=== PATIENT | female | born 1940 | race Caucasian/White ===

== ENCOUNTER 2019-02-10 21:42 | Observation (INO) ==
[2019-02-10 23:57] LABS: RBC 1.94 XMIL (4.2-5.4); WBC 6.31 X1000 (4.8-10.8)
[2019-02-10 23:58] LABS: BASO# 0.01 X1000 (0.0-0.2); BASO% 0.2 % (0.0-0.8); EOS# 0.02 X1000 (0.0-0.7); EOS% 0.3 % (0.0-10.0); HEMATOCRIT 19.2 % (37.0-47.0); IMM GRAN# 0.05 X1000 (0.0-0.04); IMM GRAN% 0.8 % (0.0-0.5); LYMPH# 0.41 X1000 (1.2-3.4); LYMPH% 6.5 % (20.5-51.1); MCH 28.4 PG (27-31); MCHC 28.6 g/dL (33-37); MONO# 0.48 X1000 (0.11-0.59); MONO% 7.6 % (1.7-9.3); MPV 9.8 FL (7.4-10.4); NEUT# 5.34 X1000 (1.4-6.5); NEUT% 84.6 % (42.2-75.2); PLT 229 X1000 (130-400); RDW 16.5 % (11.5-14.5)
[2019-02-10 23:59] LABS: HEMOGLOBIN 5.5 g/dL (12.0-16.0)
[2019-02-11 00:23] LABS: AGAP 8; ALB/GLOB RATIO 1.3; ALBUMIN 3.7 g/dL (3.5-5.0); ALKALINE PHOSPHATASE 52 U/L (32-104); BUN 20 mg/dL (8-22); CALCIUM 10.1 mg/dL (8.8-10.2); CHLORIDE 101 mmol/L (98-107); COSMO 277; CREATININE 0.8 mg/dL (0.5-0.9); ESTIMATED GFR > 60; GLUCOSE 117 mg/dL (70-104); GOT 19 U/L (10-30); GPT 12 U/L (10-36); POTASSIUM 4.3 mmol/L (3.5-5.1); SODIUM 137 mmol/L (136-145); TCO2 28 mmol/L (25-35); TOTAL BILIRUBIN 0.26 mg/dL (0.20-1.00); TOTAL PROTEIN 6.6 g/dL (6.3-8.3)
[2019-02-11 00:43] LABS: FREE T4 1.32 ng/dL (0.93-1.70); TSH 1.26 uIUmL (0.27-4.20)
--- NOTE | 2019-02-11 01:42 | PROVIDER DOCUMENTATION ---
This chart was entered by Hattie Ling Scribe, acting as scribe for Rinku Queen MD. HPI-Cardiac General - General Chief Complaint: Anxiety Stated Complaint: panic attack Time Seen by Provider: 02/10/19 21:53 Source: patient Allergies/Adverse Reactions: Patient Allergies Allergy/AdvReac Type Severity Reaction Status Date / Time Sulfa (Sulfonamide Allergy Severe SWELLING Verified 03/25/16 17:52 Antibiotics) TO THROAT, [Sulfa(Sulfonamide TONGUE, Antibiotics)] HIVES amoxicillin trihydrate * AdvReac Mild DIARRHEA Verified 03/25/16 17:52 [From Augmentin] potassium clavulanate * AdvReac Mild DIARRHEA Verified 03/25/16 17:52 [From Augmentin] Home Medications: Home Medication List Medication Instructions Recorded Confirmed Last Taken Type Furosemide [Lasix] 20 mg PO EVERY OTHER DAY 12/29/15 05/09/18 05/08/18 History Aspirin 81 mg PO QAM 03/25/16 05/09/18 05/09/18 History Potassium Chloride E.r. [Micro-K] 10 mg PO QPM 03/25/16 05/09/18 05/09/18 History Ambrisentan [Letairis] 5 mg PO DAILY 05/04/17 05/09/18 05/09/18 History Cyanocobalamin (Vitamin B-12) 500 mcg PO DAILY 05/04/17 05/09/18 05/09/18 History [B-12] Digoxin 125 mcg PO DAILY 05/04/17 05/09/18 05/09/18 History Ferrous Sulfate 325 mg PO BID CC 05/04/17 05/09/18 05/09/18 History Multivitamin,Therapeutic [Thera] 1 each PO DAILY 05/04/17 05/09/18 05/09/18 History Sildenafil [Revatio] 20 mg PO TID 05/04/17 05/09/18 05/09/18 History Spironolactone 25 mg PO DAILY 05/04/17 05/09/18 05/04/17 07:00 History Vit D3-Vit K/Berberine/Hops 1 each PO DAILY 05/04/17 05/09/18 05/04/17 07:00 History [Ostera Tablet] - History of Present Illness-Cardiac Nature of Presenting Problem: 78 yof presents w/family w/co rapid HR for 2 weeks intermittently but mostly when standing and also becomes dizzy. pt states she felt HR go up when standing to use the restroom. pt is a resident at [facility]. pt was watching tv tonight and "felt funny" and called nurses and bp was elevated and heart rate was 130 per family. pt states 1 week ago chest felt tight and rad up neck and back. pt has sinus problems but denies sob, abd pain, nvd, fever and sweating. pt is seen at [facility] for cardiac problem. was referred by dr. cohen. pt recently started taking loteritis. pt has hyx of chf, copd, htn. 3x car artery sx. no bypasses or stents. Review of Systems - Adult - REVIEW OF SYSTEMS - ADULT Constitutional: reports: no symptoms reported. denies: chills, fever Eyes: reports: no symptoms reported Ears, Nose, Mouth & Throat: reports: see HPI, sinus problem. denies: hearing loss, mouth swelling, hoarseness Cardiovascular: reports: see HPI, chest pain (1 week ago tightness), irregular heart rate (tachy). denies: palpitations, poor circulation, syncope Respiratory: reports: no symptoms reported. denies: excessive sputum production, shortness of breath, wheezing Gastrointestinal: reports: no symptoms reported. denies: abdominal pain, diarrhea, nausea, vomiting Genitourinary: reports: no symptoms reported Musculoskeletal: reports: no symptoms reported Integumentary: reports: no symptoms reported Neurological: reports: see HPI, dizziness/vertigo. denies: headache/migraines, loss of balance, numbness, tremors Psychiatric: reports: no symptoms reported Endocrine: reports: no symptoms reported. denies: excessive sweating, increased hunger, increased thirst, polyuria Hematologic/Lymphatic: reports: no symptoms reported Allergic/Immunologic: reports: no symptoms reported All Other Systems: Reviewed and Negative Past History - Adult - PAST MEDICAL HISTORY-ADULT Review of Records: reports: Old Records Reviewed, Nursing Assessment Review, Medications Reviewed, Social history reviewed & non-contributory. Major Childhood Illnesses: reports: denies history Cardiovascular: reports: CAD, HTN, other Respiratory: reports: lung disease Gastrointestinal: reports: other (heartburn) Obstetrical/Gynecological: reports: denies history Genitourinary: reports: denies history Musculoskeletal: reports: denies history Neurological: reports: denies history Endocrine/Immune: reports: thyroid disorder Other Conditions: reports: denies history - PRIOR SURGERIES/PROCEDURES Surgical/Procedure History: reports: BTL, other, appendectomy - PRIOR HOSPITALIZATIONS Prior Hospitalizations: reports: none - IMMUNIZATION STATUS Childhood Immunizations: See Nurse Assessment Flu Vaccine: See Nurse Assessment - FAMILY HISTORY Family History: reviewed, not pertinent - SOCIAL HISTORY Smoking: greater than 1 pack/day, other (former smoker) Substance Use: none/never Physical Exam-General - PHYSICAL EXAM-ADULT Initial Vital Signs Reviewed: Yes - CONSTITUTIONAL General Appearance: appears well, alert, no apparent distress, thin. negative: slow to respond, obtunded, combative - EYES Eyes: PERRL/EOMI - HEAD, EARS, NOSE, MOUTH & THROAT HENMT: normocephalic/atraumatic, moist mucous membranes, normal ENT inspection, TMs normal, pharynx normal. negative: pharyngeal erythema, tonsillar exudate, TM obscurred by cerumen, frontal tenderness, maxillary tenderness - NECK Neck: non-tender, full range of motion, supple, normal inspection - RESPIRATORY Respiratory: chest non-tender, lungs clear, normal breath sounds, no pleuratic chest pain, no respiratory distress, no accessory muscle use. negative: respiratory distress, decreased breath sounds, accessory muscle use - CARDIOVASCULAR Cardiovascular: normal peripheral pulses, no edema, no gallop, no JVD, tachycardia (104 at 2224), systolic murmur (3/6 left lower sternal boarder). 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 negative: anxious, disheveled, depressed affect Progress - PLAN OF CARE/RESULTS Progress/Plan/Lab Results: Vital Signs - 8 hr 02/10/19 22:24 02/10/19 22:48 Pulse Rate 104 H Respiratory Rate 18 Blood Pressure 148/51 148/51 O2 Sat by Pulse Oximetry 98 98 Laboratory Results - last 24 hr 02/10/19 02/10/19 02/10/19 23:42 23:42 23:42 WBC 6.31 RBC 1.94 L Hgb 5.5 L* Hct 19.2 L MCV 99.0 MCH 28.4 MCHC 28.6 L RDW Std Deviation 16.5 H Plt Count 229 MPV 9.8 Immature Gran % (Auto) 0.8 H Neut % (Auto) 84.6 H Lymph % (Auto) 6.5 L [place] % (Auto) 7.6 Eos % (Auto) 0.3 Baso % (Auto) 0.2 Immature Gran # (Auto) 0.05 H Neut # (Auto) 5.34 Lymph # (Auto) 0.41 L [place] # (Auto) 0.48 Eos # (Auto) 0.02 Baso # (Auto) 0.01 Sodium 137 Potassium 4.3 Chloride 101 Carbon Dioxide 28 Anion Gap 8 BUN 20 Creatinine 0.8 Estimated GFR/1.73 m2 > 60 BUN/Creatinine Ratio 25 Glucose 117 H Calculated Osmolality 277 Calcium 10.1 Magnesium 2.0 Total Bilirubin 0.26 AST 19 ALT 12 Alkaline Phosphatase 52 Troponin T Total Protein 6.6 Albumin 3.7 Globulin 2.9 Albumin/Globulin Ratio 1.3 Plasma Lactate TSH 1.26 Free T4 1.32 02/10/19 02/10/19 23:42 23:42 WBC RBC Hgb Hct MCV MCH MCHC RDW Std Deviation Plt Count MPV Immature Gran % (Auto) Neut % (Auto) Lymph % (Auto) [place] % (Auto) Eos % (Auto) Baso % (Auto) Immature Gran # (Auto) Neut # (Auto) Lymph # (Auto) [place] # (Auto) Eos # (Auto) Baso # (Auto) Sodium Potassium Chloride Carbon Dioxide Anion Gap BUN Creatinine Estimated GFR/1.73 m2 BUN/Creatinine Ratio Glucose Calculated Osmolality Calcium Magnesium Total Bilirubin AST ALT Alkaline Phosphatase Troponin T < 0.010 Total Protein Albumin Globulin Albumin/Globulin Ratio Plasma Lactate 0.6 TSH Free T4 Orders Category Date Time Status Cardiac Monitoring DIRECTED Care 02/10/19 22:48 Active Saline Loc NOW Care 02/10/19 22:48 Active CHEST-PORTABLE [RAD] Stat Exams 02/10/19 22:50 Taken CBC WITH ELECTRONIC DIFF [HEME] Stat Lab 02/10/19 23:42 Completed COMPREHENSIVE METABOLIC PANEL [CHEM] Stat Lab 02/10/19 23:42 Completed FREE T4 Stat Lab 02/10/19 23:42 Completed LACTATE, PLASMA [CHEM] Stat Lab 02/10/19 23:42 Completed MAGNESIUM [CHEM] Stat Lab 02/10/19 23:42 Completed OCCULT BLOOD SCREENING [STOOL] Stat Lab 02/11/19 00:17 Uncollected TROPONIN T Stat Lab 02/10/19 23:42 Completed TSH Stat Lab 02/10/19 23:42 Completed TYPE & SCREEN [BBK] Stat Lab 02/11/19 00:30 Uncollected URINALYSIS W/POSS RFLX CULT [URINALYSIS] Stat Lab 02/10/19 22:50 Uncollected EKG [EKG] Stat Ther 02/10/19 22:48 Ordered Result Diagrams: 02/10/19 23:42 02/10/19 23:42 - REASSESSMENT Reassessment #1 Time Reassessed: 01:37 (Dr. Queen discussed pt w/ Dr. Marroquin) Status: unchanged Departure - Departure Date of Disposition Decision: 02/11/19 Time of Disposition Decision: :41 DIAGNOSIS: Tachycardia, Severe anemia, CHF (congestive heart failure) Disposition: ADMITTED INPATIENT 09 Certified Medical Emergency: Emergent Condition: Stable Referrals and Follow-Ups: Jayden Robertson MD [Primary Care Provider] - - Critical Care Note This patient required my direct & personal management of CC.: No Attestation - Physician/ ISIS Attestation Patient care was provided by Advanced Practice Provider:: No The physician spent face to face time with patient:: Yes Advanced Practice Provider documentation review:: Supervising physician onsite and consulted in the evaluation and care of this patient. The physician did have a face to face encounter with the patient. This chart was documented by the indicated scribe, (Hattie Ling Scribe) and accurately reflects the services I performed and decisions made by me, Rinku Queen MD, as attested by the provider's signature.
[2019-02-11 02:17] LABS: URINE SOURCE CLEAN CATCH
[2019-02-11 02:20] LABS: BILIRUBIN URINE NEGATIVE (NEGATIVE); BLOOD URINE NEGATIVE (NEGATIVE); COLOR YELLOW; GLUCOSE URINE NEGATIVE (NEGATIVE); KETONE URINE NEGATIVE (NEGATIVE); LEUKOCYTES URINE NEGATIVE (NEGATIVE); NITRITE URINE NEGATIVE (NEGATIVE); PH URINE 5.5; PROTEIN URINE TRACE mg/dL (NEGATIVE); SP GRAVITY URINE 1.008; TURBIDITY URINE CLEAR (CLEAR); UROBILINOGEN URINE NORMAL (NORMAL)
[2019-02-11 02:21] LABS: UR EPITHELIAL CELLS <10 /HPF (<10); URINE BACTERIA NEGATIVE /HPF; URINE RBC <10 /HPF (<10); URINE WBC <10 /HPF (<10)
[2019-02-11] MEDS ORDERED: ZOFRAN IV PRN (02:28)
[2019-02-11 03:14] LABS: IRON SATURATION 8 %; TIBC 319 ug/dL; TOTAL IRON 26 ug/dL (49-151); UNBOUND IRON 293 ug/dL (112-346)
--- NOTE | 2019-02-11 05:52 | HISTORY AND PHYSICAL ---
CHIEF COMPLAINT: Dizziness. HISTORY OF PRESENT ILLNESS: Ms. Schulte is a 78-year-old female who resides at [facility]. She has a history of chronic iron deficiency anemia. She sees Dr. Hannon outpatient for this. She takes iron supplementation at home, states that she frequently has to have blood transactions. The got the last around [place]. This last year she had 2 units. At any rate, she started having dizzy spells and felt as if her heart was racing. Every time she stood up she would feel lightheaded. It got to the point where she was having trouble ambulating, so she came into the emergency room. Laboratory data was obtained and she was indeed anemic with a hemoglobin of 5.5 and a hematocrit of 19.2. She will be admitted for transfusion. PAST MEDICAL HISTORY: Coronary artery disease, hypertension, iron deficiency anemia, syncope, diastolic heart failure, pleural effusion, pulmonary hypertension. PREVIOUS SURGICAL HISTORY: Appendectomy, partial thyroidectomy, carotid endarterectomy on the right, tubal ligation. SOCIAL HISTORY: Lives at [facility]. She stopped smoking over 5 years ago. Has never drank alcohol. No illicit drugs. She did smoke for around 50 years before stopping smoking. FAMILY HISTORY: Both parents are , father from coronary artery disease; mother had diabetes mellitus. ALLERGIES: Sulfa antibiotics and Augmentin. HOME MEDICATIONS: A list of home medications was not available. Order was placed for Nursing to reconcile home medications from [facility]. REVIEW OF SYSTEMS: Fourteen-point review of systems conducted with the patient. She also had complained of dark stool, however, she says she chronically has dark stools related to her iron supplementation. Denied any chest pain, nausea, vomiting, hematochezia or melena. Other pertinent positives listed above in the HPI. All other systems reviewed and found to be negative. PHYSICAL EXAMINATION: VITAL SIGNS: Pulse 104, respirations 18, blood pressure 148/51, oxygen saturation 98% on 2 L nasal cannula. GENERAL: Pleasant 78-year-old female lying in the ER stretcher in no acute distress, very pleasant, alert and oriented x3. HEENT: Head is atraumatic and normocephalic. Pupils equal, round and reactive to light. Extraocular eye movements intact. Sclerae are anicteric. Conjunctivae are pale. Oral mucosa is dry. Poor dentition noted. NECK: Supple. No JVD. No thyromegaly. Trachea is midline. No cervical lymphadenopathy. CARDIAC: S1, S2 appreciated. A 2/6 systolic ejection murmur. No gallops, no rubs. LUNGS: Prolonged expiratory phase, but clear to auscultation. No rhonchi, wheezes, or rales. Symmetrical rise and fall with respirations. ABDOMEN: Soft, nondistended, nontender. Bowel sounds present in all 4 quadrants, normoactive. No pulsatile mass. No organomegaly. EXTREMITIES: No clubbing, cyanosis or edema. Two-plus pedal pulses bilaterally. GENITOURINARY: No bladder distention. Otherwise deferred. NEUROLOGICAL: Alert and oriented x3. Cranial nerves 2-12 grossly intact. DIAGNOSTIC DATA: Chest x-ray shows chronic changes related to COPD. LABORATORY DATA: WBC 6.31, hemoglobin 5.5, hematocrit 19.2, platelet count 229,000. Chemistry panel within normal limits other than a glucose of 117. Urine unremarkable. ASSESSMENT AND PLAN: 1. Symptomatic anemia. Patient is known to have chronic anemia. Will check iron indices as she does have known iron deficiency. Will transfuse 2 units of packed red blood cells. Recheck levels after transfusion. 2. Hypertension. Will restart home medications when available. 3. Chronic obstructive pulmonary disease. This is without exacerbation. Continue patient's home medications once they are reconciled. 4. Diastolic heart failure. The patient does not seem to be in any type of fluid overload. Will check strict intake and output while blood is transfused. 5. Dizziness secondary to #1. Further recommendations per the patient's clinical course. Dictated by DONNA Nieves for Juve Marroquin MD cc: MD Dr Dandre Castillo at [facility] physician DONNA Nieves MD
--- NOTE | 2019-02-11 07:49 | Diag Imaging Result Doc PS360 ---
EXAM: CHEST-PORTABLE HISTORY: tachycard TECHNIQUE: Portable chest single view COMPARISON: 04/04/2016 FINDINGS: The lungs are well expanded. The heart is not enlarged. There are mild increased interstitial markings bilaterally believed to be the vasculature. No effusion identified. IMPRESSION: Mild pulmonary edema. Follow-up PA and lateral recommended. Electronically signed by Curtis Campo 02/11/2019 7:47 AM
[2019-02-11 10:34] LABS: HEMATOCRIT 29.1 % (37.0-47.0); HEMOGLOBIN 8.8 g/dL (12.0-16.0)
--- NOTE | 2019-02-11 16:07 | PROGRESS NOTE ---
DATE: 02/11/2019 SUBJECTIVE: Today Ms. Clarke refers to be doing fairly okay. She said after the 2 units of PRBC transfusion, she does not feel any more dizziness and she did not really notice any abnormality with her stool because she has been on the iron pills. Ms. Schulte is chronically anemic since her teens, and she normally follows up with Dr. Hannon for regular iron infusions. OBJECTIVE: Vital signs: Blood pressure is 116/80, pulse is 79, respirations 20, temperature is 98.3 degrees. General: Ms. Schulte is a 78-year-old female. She is in bed, no distress. HEENT: Mucosa is pink and moist. Anicteric. Acyanotic. Neck: Supple. Chest: Air entry is bilaterally reduced. Some fine crackles in posterior lung colon. No wheezing. Cardiovascular: Regular rate and rhythm. Abdomen: Soft. Extremities: No pedal edema. 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 LABORATORY DATA: Has also been reviewed. Hemoglobin is up to 8.8. Chemistry, iron studies is consistent with iron deficiency anemia. IMAGING STUDIES: A chest x-ray does show mild pulmonary edema. ASSESSMENT: 1. Symptomatic anemia. The patient is status post 2 packed red blood cell transfusion. Hemoglobin is up to 8.8. She feels a lot better. 2. Iron deficiency anemia. 3. Chronic obstructive pulmonary disease, currently not in exacerbation. 4. Severe pulmonary hypertension. Patient is on ambrisentan and sildenafil. Follows up with [facility], [facility] and [facility]. 5. Hypertension, controlled. 6. Iron deficiency anemia likely due to chronic gastrointestinal bleed. This patient is currently not overtly bleeding. She did have an esophagogastroduodenoscopy and colonoscopy by Dr. Kta in 2012, which only showed old scar in the duodenum and internal hemorrhoids, as well as a small rectal polyp. We will keep eye on the bleeding. If the hemoglobin/hematocrit continues to drop, we will get Gastroenterology to evaluate her. . cc: Manuel Villa MD
[2019-02-11] MEDS: REVATIO PO SCH (16:56)
[2019-02-11] MEDS: FERROUS SULFATE PO SCH (16:56)
[2019-02-11] MEDS: MELATONIN PO SCH ×2 (19:33→22:46)
[2019-02-12 06:09] LABS: BASO# 0.01 X1000 (0.0-0.2); BASO% 0.2 % (0.0-0.8); EOS# 0.12 X1000 (0.0-0.7); EOS% 2.8 % (0.0-10.0); HEMATOCRIT 28.3 % (37.0-47.0); HEMOGLOBIN 8.5 g/dL (12.0-16.0); IMM GRAN# 0.02 X1000 (0.0-0.04); IMM GRAN% 0.5 % (0.0-0.5); LYMPH# 0.54 X1000 (1.2-3.4); LYMPH% 12.5 % (20.5-51.1); MCH 28.7 PG (27-31); MCV 95.6 FL (81-99); MONO# 0.51 X1000 (0.11-0.59); MONO% 11.8 % (1.7-9.3); MPV 9.9 FL (7.4-10.4); NEUT# 3.13 X1000 (1.4-6.5); NEUT% 72.2 % (42.2-75.2); PLT 209 X1000 (130-400); RBC 2.96 XMIL (4.2-5.4); RDW 16.1 % (11.5-14.5); WBC 4.33 X1000 (4.8-10.8)
[2019-02-12 06:23] LABS: AGAP 5; BUN 15 mg/dL (8-22); CALCIUM 10.1 mg/dL (8.8-10.2); CHLORIDE 105 mmol/L (98-107); COSMO 276; CREATININE 0.6 mg/dL (0.5-0.9); ESTIMATED GFR > 60; GLUCOSE 96 mg/dL (70-104); POTASSIUM 4.2 mmol/L (3.5-5.1); SODIUM 138 mmol/L (136-145); TCO2 28 mmol/L (25-35)
[2019-02-12] MEDS: REVATIO PO SCH ×2 (08:05→12:56)
[2019-02-12] MEDS: FERROUS SULFATE PO SCH (08:05)
[2019-02-12] MEDS ORDERED: PATIENT'S OWN MED PO SCH ×2 (09:00→14:45)
[2019-02-12] MEDS ORDERED: ZYLOPRIM PO SCH (09:00)
[2019-02-12] MEDS ORDERED: ALDACTONE PO SCH (09:00)
[2019-02-12] MEDS ORDERED: VITAMIN B-12 PO SCH (09:00)
[2019-02-12] MEDS ORDERED: ASPIRIN PO SCH (09:00)
[2019-02-12] MEDS ORDERED: CENTRUM SILVER PO SCH (09:00)
[2019-02-12] MEDS ORDERED: LANOXIN PO SCH (09:00)
[2019-02-12] MEDS ORDERED: ZANTAC PO SCH (09:00)
[2019-02-12] MEDS ORDERED: SYSTANE EYE DROPS OPH SCH (09:00)
[2019-02-12 10:14] VITALS: BP 120/40
--- NOTE | 2019-02-12 15:04 | DISCHARGE SUMMARY ---
ADMISSION DATE: 02/11/2019 DISCHARGE DATE: 02/12/2019 DIAGNOSES: 1. Symptomatic anemia status post transfusion 2 units packed red blood cells. 2. Hypertension. 3. Chronic obstructive pulmonary disease (COPD) without exacerbation. 4. Diastolic heart failure. 5. Dizziness secondary to #1. 6. Pulmonary hypertension. Followed by [facility] Clinic at [facility] and [place]. DIAGNOSTICS: Chest x-ray revealed mild pulmonary edema. Heart is not enlarged. There are mild interstitial markings bilateral, believed to be vasculature. No effusion identified. HOSPITAL COURSE: Ms. Schulte presented to the emergency room for dizziness. She was found to have a hemoglobin of 5.5 and hematocrit of 19.2. She was subsequently transfused 2 units of packed cells, and today her hemoglobin is 8.5 and hematocrit 28.3. She has history of iron deficiency anemia for which she sees Dr. Hannon. We did continue her ferrous sulfate as well as her Centrum Silver. After transfusion, she had no further dizziness. She was not orthostatic by vital signs, and thankfully, she is ready to return to rehabilitation. DISCHARGE PHYSICAL EXAMINATION: Cardiovascular: Regular rate and rhythm. S1 and S2 appreciated. She has no lower extremity edema. Pulmonary: Breath sounds are clear. No increased work of breathing noted. Chest rises and falls symmetric with respiration. Gastrointestinal: Abdomen is soft, nontender, nondistended with bowel sounds in all 4 quadrants. Neurologic: She is awake and alert. DISCHARGE MEDICATIONS: 1. Bactroban ointment intranasally as ordered. 2. Melatonin 3 mg p.o. at bedtime. 3. Allopurinol 100 mg p.o. q.a.m. 4. Aspirin 81 mg p.o. daily. 5. Vitamin B12 of 500 mcg p.o. daily. 6. Digoxin 125 mcg p.o. daily. 7. Ferrous sulfate 325 p.o. b.i.d. 8. Lasix 20 mg p.o. daily. 9. Micro-K 10 mEq p.o. daily. 10. Zantac 150 mg p.o. q.a.m. 11. Spironolactone 25 mg p.o. daily. 12. Systane eyedrops 1 drop to each eye daily. 13. Multivitamin 1 daily. 14. Sildenafil 20 mg p.o. t.i.d. FOLLOW-UP: 1. She needs to follow up with her primary care provider [*]in the next 1 to 2 weeks, sooner if needed. 2. She is to follow up with Dr. Kat in 1 to 2 weeks for evaluation. Appointment will need to be called and scheduled. DISPOSITION: She is being discharged in transfer in stable condition back to [facility] where she is a long-term resident. COORDINATION TIME: This is a greater than 30-minute discharge. Dictated by DONNA Bazan for Manuel Villa MD This chart was documented by, DONNA Bazan and accurately reflects the services performed, treatment plan and medical decisions as attested by the providers signature Manuel Villa MD. cc: DONNA Bazan MD
== END 2019-02-12 20:38 ==
LOC: ED 21:42 → EDIPHOLD 21:42 → SUATTDRO 02-11 02:47 → 4N 02-11 07:29
PROVIDERS: ATTEND Internal Medicine
CPT/HCPCS: 36430; 71010; 71045; 80048; 80053; 81001; 82270; 82607; 82728; 82746; 83540; 83550; 83605; 83735; 84439; 84443; 84484; 85014; 85018; 85025; 86038; 86039; 86850; 86900; 86901; 86920; 93005; 99285; A9270; P9016

== ENCOUNTER 2019-08-06 14:03 | Inpatient (IN) ==
[2019-08-06 15:27] LABS: URINE SOURCE CLEAN CATCH
--- NOTE | 2019-08-06 15:30 | EKG Report ---
Test Performed on : 08/06/2019 3:24:19 PM Test Reason : weakness Blood Pressure : / mmHG Vent. Rate : 085 BPM Atrial Rate : 085 BPM P-R Int : 228 ms QRS Dur : 090 ms QT Int : 328 ms P-R-T Axes : 075 084 018 degrees QTc Int : 390 ms Sinus rhythm. with 1st degree AV block. ST & T wave abnormality, consider inferior ischemia Abnormal ECG When compared with ECG of 29-MAR-2019 01:23, Non-specific change in ST segment in Inferior leads ST now depressed in Lateral leads Unconfirmed Result
[2019-08-06 15:33] LABS: BILIRUBIN URINE NEGATIVE (NEGATIVE); BLOOD URINE NEGATIVE (NEGATIVE); COLOR STRAW; GLUCOSE URINE NEGATIVE (NEGATIVE); KETONE URINE NEGATIVE (NEGATIVE); LEUKOCYTES URINE NEGATIVE (NEGATIVE); NITRITE URINE NEGATIVE (NEGATIVE); PH URINE 6.5; PROTEIN URINE NEGATIVE (NEGATIVE); SP GRAVITY URINE 1.014; TURBIDITY URINE CLEAR (CLEAR); UR EPITHELIAL CELLS <10 /HPF (<10); URINE BACTERIA NEGATIVE /HPF; URINE RBC <10 /HPF (<10); URINE WBC <10 /HPF (<10); UROBILINOGEN URINE NORMAL (NORMAL)
--- NOTE | 2019-08-06 15:33 | PROVIDER DOCUMENTATION ---
HPI-Abdominal Pain/GI Problem - General Chief Complaint: GI Bleed Stated Complaint: POSSIBLE GI BLEED Time Seen by Provider: 08/06/19 14:55 Source: patient Allergies/Adverse Reactions: Patient Allergies Allergy/AdvReac Type Severity Reaction Status Date / Time Sulfa (Sulfonamide Allergy Severe SWELLING Verified 08/06/19 14:56 Antibiotics) TO THROAT, [Sulfa(Sulfonamide TONGUE, Antibiotics)] HIVES amoxicillin trihydrate * AdvReac Mild DIARRHEA Verified 08/06/19 14:56 [From Augmentin] potassium clavulanate * AdvReac Mild DIARRHEA Verified 08/06/19 14:56 [From Augmentin] metoprolol AdvReac Unknown Verified 08/06/19 14:56 Home Medications: Home Medication List Medication Instructions Recorded Confirmed Last Taken Type Furosemide [Lasix] 20 mg PO EVERY OTHER DAY 12/29/15 08/06/19 08/05/19 History Potassium Chloride E.r. [Micro-K] 10 meq PO QAM 03/25/16 08/06/19 03/25/19 History Ambrisentan [Letairis] 10 mg PO DAILY 05/04/17 08/06/19 03/25/19 History Ferrous Sulfate 325 mg PO DAILY 05/04/17 08/06/19 03/25/19 History Spironolactone 25 mg PO DAILY 05/04/17 08/06/19 03/25/19 History Vit D3-Vit K/Berberine/Hops 1 each PO DAILY 05/04/17 08/06/19 08/06/19 History [Ostera Tablet] Allopurinol 100 mg PO QAM 02/11/19 08/06/19 03/25/19 History Melatonin/Pyridoxine HCl (B6) 3 mg PO QHS 02/11/19 08/06/19 08/05/19 History [Melatonin 3 mg Tablet] Mupirocin Ointment [Bactroban 1 ea INTRANASAL QHS 02/11/19 08/06/19 03/24/19 History Ointment] Propylene Glycol/Peg 400 [Systane 1 ea OPH DAILY 02/11/19 08/06/19 03/25/19 History 0.3-0.4% Eye Drops] Sildenafil Citrate 20 mg PO TID 02/11/19 08/06/19 03/25/19 History Omeprazole [Prilosec] 40 mg PO DAILY #180 cap 03/29/19 08/06/19 Unknown Rx Polyethylene Glycol 3350 [Miralax] 17 gm PO BID #0 powder, packet 03/29/19 08/06/19 Unknown Rx - History of Present Illness-ABD Nature of Presenting Problems: 79yof present to ER with c/o dark tarry stool onset Sunday. Pt states she took colchine on Sunday. Pt denies abd pain. Pt reports a hx of this prior, was repaired at [facility]. Pt poor historian. Pt nontoxic. Quality of Pain: reports: none Onset/Duration: reports: 5 days ago Timing: reports: still present Associated Symptoms: denies: dizziness, fever/chills, genitourinary problems, nausea, shortness of breath, vomiting Last BM: this morning Dark Stools Present?: reports: black, tarry Rectal Pain: reports: none Emesis Description: reports: none Review of Systems - Adult - REVIEW OF SYSTEMS - ADULT Constitutional: reports: no symptoms reported. denies: fever Eyes: reports: no symptoms reported Ears, Nose, Mouth & Throat: reports: no symptoms reported Cardiovascular: reports: no symptoms reported Respiratory: reports: no symptoms reported. denies: shortness of breath Gastrointestinal: reports: see HPI, rectal bleeding. denies: abdominal pain, hematemesis, nausea, vomiting Genitourinary: reports: no symptoms reported. denies: hematuria Musculoskeletal: reports: no symptoms reported Integumentary: reports: no symptoms reported Neurological: reports: no symptoms reported. denies: dizziness/vertigo Psychiatric: reports: no symptoms reported Endocrine: reports: no symptoms reported Hematologic/Lymphatic: reports: no symptoms reported Allergic/Immunologic: reports: no symptoms reported All Other Systems: Reviewed and Negative Past History - Adult - PAST MEDICAL HISTORY-ADULT Review of Records: reports: Old Records Reviewed, Nursing Assessment Review, Medications Reviewed, Social history reviewed & non-contributory. Major Childhood Illnesses: reports: denies history Cardiovascular: reports: CAD, HTN, other Respiratory: reports: lung disease Gastrointestinal: reports: GI bleed Obstetrical/Gynecological: reports: denies history Genitourinary: reports: denies history Musculoskeletal: reports: denies history Neurological: reports: denies history Endocrine/Immune: reports: thyroid disorder Other Conditions: reports: denies history - PRIOR SURGERIES/PROCEDURES Surgical/Procedure History: reports: BTL, other, appendectomy - PRIOR HOSPITALIZATIONS Prior Hospitalizations: reports: none - IMMUNIZATION STATUS Childhood Immunizations: See Nurse Assessment Flu Vaccine: See Nurse Assessment - FAMILY HISTORY Family History: reviewed, not pertinent Physical Exam-General - PHYSICAL EXAM-ADULT Initial Vital Signs Reviewed: Yes - CONSTITUTIONAL General Appearance: alert, no apparent distress - EYES Eyes: pale conjunctivae - HEAD, EARS, NOSE, MOUTH & THROAT HENMT: moist mucous membranes, normal ENT inspection, TMs normal, pharynx normal . negative: angioedema - NECK Neck: full range of motion, supple, normal inspection - RESPIRATORY Respiratory: lungs clear, normal breath sounds, no respiratory distress, no accessory muscle use - CARDIOVASCULAR Cardiovascular: regular rate, rhythm - GASTROINTESTINAL (ABDOMEN) Abdominal Exam: normal bowel sounds, non tender, soft. negative: distended, guarding, rigid, rebound - GENITOURINARY Rectal Exam: normal exam, normal rectal tone, black stool. negative: hemorrhoids Hemoccult Exam: heme positive stool - LYMPHATIC Lymphatic: no adenopathy - MUSCULOSKELETAL Back Exam: normal inspection, no vertebral tenderness Extremity: normal range of motion, non-tender, normal inspection, no pedal edema - SKIN Integumentary: normal color, warm/dry - NEUROLOGIC Neurologic: grossly normal, no motor/sensory deficits - PSYCHIATRIC Psych/Mental Status: normal mood/affect, oriented x 3 Progress - PLAN OF CARE/RESULTS Progress/Plan/Lab Results: Vital Signs - 8 hr 08/06/19 14:23 Pulse Rate 93 H Respiratory Rate 14 Blood Pressure 159/41 O2 Sat by Pulse Oximetry 98 Orders Category Date Time Status Nursing- Obtain EKG ONCE Care 08/06/19 14:56 Active CBC WITH DIFF [HEME] Stat Lab 08/06/19 14:56 Ordered COMPREHENSIVE METABOLIC PANEL [CHEM] Stat Lab 08/06/19 15:20 Ordered OCCULT BLOOD SCREENING [STOOL] Stat Lab 08/06/19 15:20 Ordered TYPE & SCREEN [BBK] Stat Lab 08/06/19 15:20 Ordered URINALYSIS W/POSS RFLX CULT [URINALYSIS] Stat Lab 08/06/19 15:15 Received EKG [EKG] Stat Ther 08/06/19 14:56 Ordered Result Diagrams: 08/06/19 15:20 08/06/19 15:20 - REASSESSMENT Reassessment #1 Time Reassessed: 17:20 (pt resting. Updated pt of results and need for admission. Pt agrees with plan.) - EKG 1 Time of EKG reading by physician:: 15:24 EKG Read and Signed by:: Usman Lechuga EKG Interpretation (*Must complete 3 of following elements*): Abnormal Rate: 85 Rhythm: SR with 1st degree AV block - CT/MRI 1 CT Study: Abdomen, Pelvis Impression: See EMR Report (FINDINGS: There is emphysema in the lower lungs no calcified gallstones or adjacent inflammation there are scattered hepatic and splenic granuloma. The spleen is not enlarged. No inflammation about the pancreas. Normal adrenal glands. There are scattered renal cysts the largest is in the right lower pole measuring 2.7 cm. No hydronephrosis severe atherosclerosis. No aortic aneurysm. No inflammation about the cecum. There is stool scattered throughout the colon. No bowel obstruction. No ascites. 5 cm calcification along the anterior border of the uterus. There is debris in the uterine cavity versus a 3.9 cm hypodense fibroid. The urinary bladder is distended and appears normal although it is low lying. IMPRESSION: 1.Emphysema 2.Renal cysts 3.Prominent atherosclerosis 4.Constipation 5.Uterine fibroids versus debris in the uterine cavity This exam was performed using automated exposure control, adjustment of mA or kV according to patient size, and/or use of iterative reconstruction technique. Electronically signed by Curtis Campo 08/06/2019 5:21 PM) - CONSULTS/PCP/HOSPITALIST Notification #1 *Consult/PCP/Hospitalist*: DONNA Lacy hospitalist Time Discussed: 17:17 Reason/Comments: Dr Bustillo accepting Consult Disposition: Will see in ED, Admit Departure - Departure Date of Disposition Decision: 08/06/19 Time of Disposition Decision: 17:17 DIAGNOSIS: GI bleed Qualifiers: GI bleed type/associated pathology: unspecified gastrointestinal hemorrhage type Qualified Code(s): K92.2 - Gastrointestinal hemorrhage, unspecified Disposition: ADMITTED INPATIENT 09 Certified Medical Emergency: Emergent Condition: Fair - Critical Care Note This patient required my direct & personal management of CC.: No Attestation - Physician/ ISIS Attestation Patient care was provided by Advanced Practice Provider:: Yes Advanced Practice Provider:: Seamus Spangler Advanced Practice Provider documentation review:: The Mid-level provider documentation, treatment plan and medical decision making was reviewed by the physician who agrees with all treatment and medical decision making by the MLP. The physician spent face to face time with patient:: No Advanced Practice Provider documentation review:: Supervising physician onsite and consulted in the evaluation and care of this patient. The physician did not have a face to face encounter with the patient.
[2019-08-06 15:41] LABS: BASO# 0.02 X1000 (0.0-0.2); BASO% 0.3 % (0.0-0.8); EOS# 0.05 X1000 (0.0-0.7); EOS% 0.8 % (0.0-10.0); HEMATOCRIT 22.2 % (37.0-47.0); HEMOGLOBIN 6.7 g/dL (12.0-16.0); IMM GRAN# 0.08 X1000 (0.0-0.04); IMM GRAN% 1.3 % (0.0-0.5); LYMPH# 0.81 X1000 (1.2-3.4); MCH 24.8 PG (27-31); MCHC 30.2 g/dL (33-37); MCV 82.2 FL (81-99); MONO# 0.43 X1000 (0.11-0.59); MONO% 6.9 % (1.7-9.3); MPV 10.3 FL (7.4-10.4); NEUT# 4.84 X1000 (1.4-6.5); NEUT% 77.7 % (42.2-75.2); PLT 300 X1000 (130-400); RDW 17.2 % (11.5-14.5); WBC 6.23 X1000 (4.8-10.8)
[2019-08-06] MEDS ORDERED: PROTONIX IV ONE (16:13)
[2019-08-06] MEDS ORDERED: SODIUM CHLORIDE 0.9% INJ ONE (16:13)
[2019-08-06] MEDS ORDERED: NS 500 ML IV ONE (16:17)
[2019-08-06 16:36] LABS: ANISOCYTOSIS OCCASIONAL; EOS 1 % (1-10); LARGE PLATELETS OCCASIONAL; LYMPHS 13 % (21-51); MONO 5 % (1-9); SEGS 81 % (42-75)
[2019-08-06 16:43] LABS: AGAP 9; ALB/GLOB RATIO 1.1; ALBUMIN 4.1 g/dL (3.5-5.0); ALKALINE PHOSPHATASE 120 U/L (32-104); BUN 35 mg/dL (8-22); CALCIUM 10.7 mg/dL (8.8-10.2); CHLORIDE 104 mmol/L (98-107); COSMO 286; CREATININE 0.7 mg/dL (0.5-0.9); ESTIMATED GFR > 60; GLUCOSE 114 mg/dL (70-104); GOT 14 U/L (10-30); GPT 6 U/L (10-36); POTASSIUM 4.7 mmol/L (3.5-5.1); SODIUM 139 mmol/L (136-145); TCO2 26 mmol/L (25-35); TOTAL BILIRUBIN < 0.15 mg/dL (0.20-1.00); TOTAL PROTEIN 7.8 g/dL (6.3-8.3)
--- NOTE | 2019-08-06 17:24 | Diag Imaging Result Doc PS360 ---
EXAM: CT ABD/PELVIS W/IV CONT ONLY HISTORY: gi bleed TECHNIQUE: CT abdomen and pelvis with intravenous contrast COMPARISON: None. FINDINGS: There is emphysema in the lower lungs no calcified gallstones or adjacent inflammation there are scattered hepatic and splenic granuloma. The spleen is not enlarged. No inflammation about the pancreas. Normal adrenal glands. There are scattered renal cysts the largest is in the right lower pole measuring 2.7 cm. No hydronephrosis severe atherosclerosis. No aortic aneurysm. No inflammation about the cecum. There is stool scattered throughout the colon. No bowel obstruction. No ascites. 5 cm calcification along the anterior border of the uterus. There is debris in the uterine cavity versus a 3.9 cm hypodense fibroid. The urinary bladder is distended and appears normal although it is low lying. IMPRESSION: 1.Emphysema 2.Renal cysts 3.Prominent atherosclerosis 4.Constipation 5.Uterine fibroids versus debris in the uterine cavity This exam was performed using automated exposure control, adjustment of mA or kV according to patient size, and/or use of iterative reconstruction technique. Electronically signed by Curtis Campo 08/06/2019 5:21 PM
[2019-08-06 18:02] LABS: INR 1.07; PROTIME 14.1 Seconds (11.0-16.0)
--- NOTE | 2019-08-06 18:59 | HISTORY AND PHYSICAL ---
PRIMARY CARE PHYSICIAN: Tanika Gaines. CHIEF COMPLAINT: Dark tarry stools with some abdominal cramping since Sunday, and has also noticed some fatigue and shortness of breath. HISTORY OF PRESENTING ILLNESS: This is a 79-year-old female who presents to [facility] with complaints of dark tarry stools that began Sunday and along with some abdominal cramping and diarrhea. She did not notice any ada bright red blood, but also states she has felt fatigued, and short of breath. She has had a history of a GI bleed in the past, and states that she feels very much like she did at that time. Her laboratory data showed a hemoglobin and hematocrit of 6.7 and 22.2. Her stool for occult blood was positive. We have a CT of the abdomen and pelvis pending at this time, but she will be admitted for further evaluation and treatment. PAST MEDICAL HISTORY: Coronary artery disease, hypertension, GI bleed, and hypothyroidism. PAST SURGICAL HISTORY: Bilateral tubal ligation and an appendectomy. FAMILY HISTORY: Reviewed and noncontributory. SOCIAL HISTORY: She currently lives with family. Denies any tobacco use, stating she quit 5 years ago. Denies any alcohol or illicit drug use. ALLERGIES: Sulfa, amoxicillin, Augmentin, and metoprolol. HOME MEDICATIONS: We will need to obtain a current list, reconcile, review and restart as appropriate. LABORATORY DATA: White blood cell count of 6.23, hemoglobin 6.7, hematocrit 22.2, and platelets 300,000. Sodium 139, potassium 4.7, chloride 104, CO2 26, BUN of 35, creatinine 0.7, and glucose 114. Urinalysis was negative. Stool for occult blood was positive. EKG showed normal sinus rhythm with a first-degree AV block at 85. CT of the abdomen and pelvis is pending. REVIEW OF SYSTEMS: She denied any fever, chills, blurred vision, or dizziness. She has had fatigue and shortness of breath. Denied any chest pain or coughing. She had some abdominal cramping, diarrhea and some dark tarry stools. Denied any burning or hurting with urination. No hematochezia or melena noted. PHYSICAL EXAMINATION: On arrival, she had a pulse of 93, respirations 14, blood pressure 159/41, and saturating 98% on 4 L via nasal cannula. GENERAL: This is a 79-year-old female who is lying in bed and answers questions appropriately. HEENT: Normocephalic, atraumatic. Normal ENT inspection. Oropharynx and nares are clear. EYES: Pupils are equal, round, and reactive to light and accommodation. Extraocular movements are intact. NECK: Normal inspection. Normal range of motion. LUNGS: Clear to auscultation bilaterally with equal lung expansion and chest wall movement. HEART: Regular rate and rhythm. No murmurs, rubs, or gallops. ABDOMEN: Soft, nontender, and nondistended. Bowel sounds are present x4 quadrants. MUSCULOSKELETAL: She had 5/5 strength x4 extremities. NEUROLOGICAL: The cranial nerves 2-12 appear grossly intact. ASSESSMENT: 1. Gastrointestinal bleed. 2. Symptomatic anemia. 3. Hypertension. 4. Hypothyroidism. PLAN: She will be admitted to the medical unit, placed on telemetry. She will be on a clear liquid diet. Held NPO after midnight. We will consult GI. Transfuse 2 units of packed red blood cells tonight. We will give her Protonix 40 mg IV q.12 hours. We need to update and confirm home medications. Tylenol 650 mg p.o. q.6 hours p.r.n., Zofran 4 mg IV q.4 hours p.r.n. We will apply SCD's for DVT prophylaxis. Further orders after seen by attending and by building performance consultant. Dictated by DONNA Dickens for Alexander Quarles MD cc: DONNA Bryant MD
[2019-08-06] MEDS ORDERED: TYLENOL PO PRN ×2 (19:19→19:27)
[2019-08-06] MEDS ORDERED: ZOFRAN IV PRN ×2 (19:19→19:28)
[2019-08-07] MEDS ORDERED: SODIUM CHLORIDE 0.9% INJ SCH (06:00)
[2019-08-07] MEDS ORDERED: PROTONIX IV SCH (06:00)
--- NOTE | 2019-08-07 06:34 | HISTORY AND PHYSICAL ---
ADDENDUM: The patient was seen and examined by me [id number]. All the laboratory images and vital signs were reviewed. The patient presented to the emergency department with generalized weakness, melena, fatigue, and she has been having also dizziness. Apparently, she started treatment with colchicine last Sunday, and she believes she did not tolerate it. The next day on Sunday she started having some liquid bowel movements/diarrhea that were dark and at some point were black. The same happened last Sunday as well. She does have a history of GI bleed, and she was discharged on 04/08/2019 due to symptomatic anemia as well, erosive gastritis in the body, duodenitis and duodenal bulb, history of coronary artery disease and transient pulses and bradycardia without associated symptoms. She does have other diagnoses like diastolic heart failure, hypertension, history of pulmonary hypertension and COPD. Her hemoglobin was found to be 6.7 with a hematocrit of 22.2. Platelet count is good at 300. She has symptomatic anemia. She will be transfused with 2 units, and we will check the hemoglobin and hematocrit again in the morning. Gastroenterology Department has been consulted. She has been evaluated by Dr. Pennington before. We will continue with Protonix twice a day. She will be n.p.o. after midnight for the possibility of having a procedure done tomorrow at some point. I agree with the rest of the nurse practitioner's assessment and plan. cc: Alexander Quarles MD
[2019-08-07] MEDS: PROTONIX IV SCH ×2 (06:35→17:29)
[2019-08-07 08:00] LABS: BASO# 0.02 X1000 (0.0-0.2); BASO% 0.5 % (0.0-0.8); EOS# 0.07 X1000 (0.0-0.7); EOS% 1.8 % (0.0-10.0); HEMATOCRIT 25.1 % (37.0-47.0); HEMOGLOBIN 7.7 g/dL (12.0-16.0); IMM GRAN# 0.03 X1000 (0.0-0.04); IMM GRAN% 0.8 % (0.0-0.5); LYMPH# 0.42 X1000 (1.2-3.4); MCH 25.2 PG (27-31); MCHC 30.7 g/dL (33-37); MONO# 0.41 X1000 (0.11-0.59); MONO% 10.8 % (1.7-9.3); NEUT# 2.86 X1000 (1.4-6.5); NEUT% 75.1 % (42.2-75.2); PLT 220 X1000 (130-400); RBC 3.06 XMIL (4.2-5.4); RDW 17.6 % (11.5-14.5); WBC 3.81 X1000 (4.8-10.8)
[2019-08-07 08:23] LABS: AGAP 9; BUN 26 mg/dL (8-22); CALCIUM 10.4 mg/dL (8.8-10.2); CHLORIDE 104 mmol/L (98-107); COSMO 280; CREATININE 0.7 mg/dL (0.5-0.9); ESTIMATED GFR > 60; GLUCOSE 98 mg/dL (70-104); POTASSIUM 4.1 mmol/L (3.5-5.1); SODIUM 138 mmol/L (136-145); TCO2 25 mmol/L (25-35)
[2019-08-07] MEDS ORDERED: GOLYTELY PO ONE (09:57)
[2019-08-07] MEDS: MIRALAX PO SCH ×2 (11:42→20:56)
--- NOTE | 2019-08-07 14:22 | PROGRESS NOTE ---
DATE: 08/07/2019 SUBJECTIVE: This patient is lying comfortably in bed. She is status post 2 PRBC's. Hemoglobin improved from 6.7 to 7.7. She has been placed on a liquid diet, and hopefully tomorrow she will have both an upper and lower endoscopy. PHYSICAL EXAMINATION: Vital Signs: Temperature 97.8 degrees, pulse 75, respiratory rate 19, blood pressure 121/35, and oxygen saturation 100% on 2 L of nasal cannula. HEENT: Head normocephalic. No trauma. PERRLA. Neck: Supple. No JVD. No masses. Central trachea. Chest: Clear to auscultation. No wheezing. No rales. Abdomen: Soft. Some tenderness to palpation around the periumbilical area. Extremities: No edema. No clubbing and no cyanosis. Decreased muscle mass. Neurological: The patient is alert. She is oriented. She is following commands. No focal lesions. LABORATORY: WBC 3.8, hemoglobin 7.7, hematocrit 25.1, and platelets 220,000. Sodium 138, potassium 4.1, chloride 104, bicarbonate 25, BUN 26, creatinine 0.7, glucose 98, and calcium 10.4. ASSESSMENT AND PLAN: 1. GI bleed, probably upper GI bleed. She has been placed on Protonix. Clear liquid diet for now, and NPO after midnight. Probably, she will have an upper and lower endoscopy tomorrow. That has been suggested and planned already by Gastroenterology Department. 2. Symptomatic anemia. She feels better. Continue to monitor hemoglobin 7.7 after 2 PRBC's. 3. Hypertension stable. 4. Hypothyroidism. Continue with same management. 5. Diastolic heart failure, it is compensated. Continue with same management. 6. History of pulmonary hypertension, aware. 7. Chronic obstructive pulmonary disease, not in exacerbation. cc: Alexander Quarles MD
--- NOTE | 2019-08-07 14:38 | GASTROENTEROLOGY CONSULTATION ---
DATE: 08/07/2019 ADMITTING PHYSICIAN: Dr. Bustillo. PRIMARY CARE PROVIDER: Tanika Gaines MD. REASON FOR CONSULTATION: Anemia and GI bleed. HISTORY OF PRESENT ILLNESS: Ms. Schulte is a 79-year-old female, who was admitted on 08/06/2019 for black tarry stool and abdominal cramping starting since Sunday. The patient was admitted here in the hospital in March 2019. At that time, she had similar complaints of GI bleeding. She had EGD and colonoscopy done at that time, which showed evidence off erosive gastritis in the body of the stomach and mild duodenitis duodenal bulb. There was stool throughout the colon with air trapping, torturous colon, internal hemorrhoids at that time. The patient continued to have internal bleeding. She had a video capsule endoscopy followed by enteroscopy with cautery of small bowel bleeding lesion, likely AVM. Post treatment she did well until recently when she was given some medication for gout flare, which she took for 3 days. Subsequent to that, she started having abdominal cramping and black tarry stools starting Sunday. On admission her hemoglobin was 6.7 and hematocrit 22.2. She was given 2 units blood transfusion. Her hemoglobin has gone up to 7.7 g and hematocrit 25.1%. Gastroenterology consulted for further management. The patient denies any nausea, vomiting, vomiting blood. She denies any blood in the urine. PAST MEDICAL HISTORY: Coronary artery disease, hypertension, GI bleeding, small bowel AVM's, gastritis and constipation, hypothyroidism. Former smoker, quit about 5 years ago. PAST SURGICAL HISTORY: Bilateral tubal ligation, appendectomy, EGD, colonoscopy, video capsule endoscopy and enteroscopy at [facility]. FAMILY HISTORY: Noncontributory. SOCIAL HISTORY: She currently lives with her family. She denies any history of tobacco use currently, she quit 5 years ago. Denies history of alcohol or drug abuse. ALLERGIES: Sulfa drugs, amoxicillin, Augmentin and metoprolol. MEDICATIONS IN THE HOSPITAL: GoLYTELY, Tylenol, Icar C, multivitamin, Zofran, Protonix b.i.d., MiraLAX b.i.d. Start her on clear liquid diet. REVIEW OF SYSTEMS: Denies any fevers, rigors, chills. Does complain of feeling weak and tired. Denies any nausea, vomiting, vomiting blood. Denies any nose bleeding, gum bleeding. Does complain of arthritis in the back. She has some abdominal cramping at the periumbilical region. She also complains of constipation. Generally has dark stools as described above. She denies any neurologic complaints. PHYSICAL EXAMINATION: Vitals: Temperature 98.4 degrees, pulse rate of 75, respiratory rate of 18, blood pressure of 127/34, saturating 100% on nasal cannula. Body weight of 120 pounds 4.8 ounces. BMI 20.0 kg/m2. General: Thinly-built, lying in bed in no acute distress. HEENT: Pale conjunctivae. No icterus. Pupils equal, reactive to light. Neck: Supple. Abdomen: Soft, mild discomfort in the region. No rebound or guarding. Extremities: No cyanosis, clubbing. Neurologic: She is alert, awake, oriented x3. LABS: Hemoglobin and hematocrit is 7.7 and 25.1, white count 3.81, platelet count 220. Sodium 138, potassium 4.1, chloride 104, bicarbonate 25, anion gap 9. BUN of 22, creatinine 0.7, glucose of 98, calcium is 10.4. AST 14, ALT 6. Alkaline phosphatase 120, total protein 7.8, albumin of 4.1. Urinalysis is clear. Stool for occult blood was positive. X-RAYS: CT of the abdomen and pelvis done on admission on 08/06/2019 showed: 1. Emphysema. 2. Renal cysts, the largest one measuring 2.7 cm in the right lower pole, prominent atherosclerosis. 3. Constipation. Stool scattered throughout the colon. 4. Uterine fibroids versus debris in the uterine cavity. 5. Scattered hepatic and splenic granuloma. IMPRESSION AND PLAN: 1. Dark stools. 2. Anemia. 3. History of small bowel arteriovenous malformations. 4. Former smoker. 5. Reflux disease. 6. Chronic constipation. 7. Renal cyst. 8. Chronic anemia which has worsened, now secondary to gastrointestinal bleed. RECOMMENDATIONS: We will continue patient on clear liquid diet. We will keep her on Protonix b.i.d. We will keep her on MiraLAX twice daily. We will keep her on Iron C b.i.d. and multivitamin once daily. I will be sure we start her on GoLYTELY now in order to prep her for colonoscopy tomorrow morning. We will schedule for EGD and colonoscopy tomorrow. Dr. Haji to evaluate further source and treatment of recurrent GI bleeding. The risks, benefits, indications and alternatives to the procedure were explained to the patient and family at bedside. All questions answered. Further recommendations to follow pending hospital course. The above plan of care discussed with the patient and family. All questions answered. Please call with any further questions. cc: MD Tanika Rich MD
[2019-08-07] MEDS: ICAR-C PO SCH ×2 (20:56→21:03)
[2019-08-08] MEDS: PROTONIX IV SCH ×2 (05:57→20:26)
[2019-08-08] MEDS: SODIUM CHLORIDE 0.9% INJ SCH ×2 (05:57→20:26)
[2019-08-08 07:36] LABS: BASO# 0.01 X1000 (0.0-0.2); BASO% 0.3 % (0.0-0.8); EOS# 0.12 X1000 (0.0-0.7); EOS% 3.4 % (0.0-10.0); HEMATOCRIT 23.7 % (37.0-47.0); HEMOGLOBIN 7.1 g/dL (12.0-16.0); IMM GRAN# 0.02 X1000 (0.0-0.04); IMM GRAN% 0.6 % (0.0-0.5); LYMPH# 0.44 X1000 (1.2-3.4); LYMPH% 12.5 % (20.5-51.1); MCH 24.9 PG (27-31); MCV 83.2 FL (81-99); MONO# 0.46 X1000 (0.11-0.59); MPV 10.1 FL (7.4-10.4); NEUT# 2.48 X1000 (1.4-6.5); NEUT% 70.2 % (42.2-75.2); PLT 222 X1000 (130-400); RBC 2.85 XMIL (4.2-5.4); RDW 17.6 % (11.5-14.5); WBC 3.53 X1000 (4.8-10.8)
[2019-08-08 07:50] LABS: AGAP 8; BUN 13 mg/dL (8-22); CALCIUM 10.3 mg/dL (8.8-10.2); CHLORIDE 102 mmol/L (98-107); COSMO 280; CREATININE 0.7 mg/dL (0.5-0.9); ESTIMATED GFR > 60; GLUCOSE 102 mg/dL (70-104); POTASSIUM 3.6 mmol/L (3.5-5.1); SODIUM 140 mmol/L (136-145); TCO2 30 mmol/L (25-35)
[2019-08-08] MEDS ORDERED: PRECEDEX ONE (09:51)
[2019-08-08] MEDS ORDERED: DIPRIVAN 1% ONE (10:54)
[2019-08-08] MEDS ORDERED: XYLOCAINE-MPF 2% ONE (10:54)
[2019-08-08] MEDS ORDERED: EPINEPHRINE SYRINGE ONE (11:12)
--- NOTE | 2019-08-08 11:36 | ENDOSCOPY OPERATIVE NOTE ---
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 PROCEDURE PERFORMED: EGD w/ control of bleeding MEDICATIONS: Per Anesthesia TOPICAL ANESTHETIC: none CONSENT: The patient understands the risks and benefits of the procedure and understands that these r isks include, but are not limited to: sedation, allergic reaction, infection, perforation and/or bleeding. Alternative means of evaluation and treatment include, among others: physical exam, x-rays, and/or surgical intervention. The patient elects to proceed with this endoscopic procedure. HISORY AND PHYSICAL: 08/08/2019 function. Hand hygiene and appropriate measures for infection prevention was taken. After the risks, benefits and alternatives of the procedure were thoroughly explained, Informed consent was verified, confirmed and timeout was successfully executed by the treatment team. The patient was anesthetized with topical anesthesia and the pediatric colonoscopy was introduced through the mouth and advanced to 150 cm from incisors in jejunum. Retrof lexion was performed in the stomach and revealed no abnormalities. The gastroscope was then slowly withdrawn an d removed. ESOPHAGUS: The mucosa of the esophagus appeared normal. STOMACH: The stomach was normal. DUODENUM: The duodenum was normal. JEJUNUM / ILEUM: There was mild oozing of bright red blood from a pigmented spot at 100 cm from the i ncisors, in the jejunum, from tiny bleeding AVM vs dieulafoy lesion. Distal to this was small clot and melena, which was cleared. Site was injected with 3 mL of epinephrine (1:10,000) with cessation of bleeding. One endoclip was m isdeployed. Another endoclip was deployed successfully over pigmented spot. Site was tattooed with 3 mL of Spot. There was no bleeding at the end of procedure. SPECIMENS REMOVED: No ADVERSE EVENTS: There were no complications. POSTOPERATIVE DIAGNOSIS: 1. The mucosa of the esophagus appeared normal 2. The stomach was normal 3. The duodenum was normal 4. There was mild oozing of bright red blood from a pigmented spot at 100 cm from the incisors, in t he jejunum, from tiny bleeding AVM vs dieulafoy lesion. Distal to this was small clot and melena, which was cleared. Site was injected with 3 mL of epinephrine (1:10,000) with cessation of bleeding. One endoclip was misdeployed. Anoth er endoclip was deployed successfully over pigmented spot. Site was tattooed with 3 mL of Spot. There was no bleedi ng at the end of procedure. 5. Colonoscopy was canceled given culprit lesion found on enteroscopy RECOMMENDATIONS: Clear liquid diet Continue PPI Trend H/H daily, transfuse prn for goal hgb 7-8 Will follow with you. Please call with questions REPEAT EXAM: Gustavo Haji MD eSigned: Gustavo Haji MD 08/08/2019 11:35 AM cc: PATIENT NAME: Puja Schulte MR#: [id number]
[2019-08-08] MEDS: MIRALAX PO SCH ×2 (12:08→20:25)
[2019-08-08] MEDS: CENTRUM SILVER PO SCH (12:08)
[2019-08-08] MEDS: ICAR-C PO SCH ×2 (12:08→20:26)
[2019-08-08 13:58] LABS: HEMATOCRIT 22.8 % (37.0-47.0); HEMOGLOBIN 6.9 g/dL (12.0-16.0)
--- NOTE | 2019-08-08 16:04 | PROGRESS NOTE ---
DATE: 08/08/2019 INTERVAL HISTORY: The patient is status post endoscopy this morning showing AVM versus Dieulafoy's lesion of the jejunum which was oozing at the time of endoscopy. This was injected and clipped. After that, the bleeding appeared to stop. The patient endorses melena this morning prior to the procedure, but none since. No new complaints. No other acute events overnight. Still some fatigue, but patient denies dyspnea, chest pain, diaphoresis. REVIEW OF SYSTEMS: Twelve point review of systems negative except as per interval history. LABS: WBC 3.8, white count 3.5, initial hemoglobin 7.1 repeat 6.9, platelets 222,000. Basic metabolic panel unremarkable. VITALS: T-max 98.2 degrees, pulse 61, respirations 18, blood pressure 122/38, O2 saturation 100% on 2 L by nasal cannula. PHYSICAL EXAMINATION: General: No acute distress. Vitals: As above. HEENT: Normocephalic, atraumatic. Moist mucous membranes. No cervical adenopathy. Pallor noted. Cardiovascular: Regular rate and rhythm. No murmurs noted. Pulmonary: Mild globally decreased breath sounds, but no wheezing, rales, or rhonchi. Abdomen: Soft, nontender, nondistended. Bowel sounds positive. Extremities: Peripheral pulses intact. No clubbing or cyanosis. Neurologic: Cranial nerves grossly intact. Mild global weakness but no focal deficits identified. Psychiatric: Normal mood and affect. Awake, alert, oriented x3. Skin: No new rashes or lesions identified. Pale. ASSESSMENT AND PLAN: 1. Upper gastrointestinal bleed with likely acute blood loss anemia. The patient hemoglobin 6.7 on admission. Transfused 1 unit initially. Improve somewhat but now back down again. We will transfuse an additional unit. 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 Hopefully this will stop the blood loss. If the patient's blood counts stabilize after transfusion, then may be able to discharge home in 24 to 48 hours. If blood loss continues, then may need repeat endoscopy or capsule endoscopy. We will monitor blood counts and await further GI recommendations. 2. Hypertension. Holding home Lasix, spironolactone, and sildenafil given low normal blood pressures here. Continue to monitor. 3. Hypothyroidism. Continue home Synthroid. 4. Chronic obstructive pulmonary disease and pulmonary hypertension. No sign of exacerbation at this time. Monitor respiratory status.
[2019-08-09] MEDS: PROTONIX IV SCH ×2 (05:16→17:47)
[2019-08-09] MEDS: SODIUM CHLORIDE 0.9% INJ SCH ×2 (05:16→17:47)
[2019-08-09] MEDS: ICAR-C PO SCH ×2 (09:51→20:25)
[2019-08-09] MEDS: MIRALAX PO SCH ×2 (09:51→20:25)
[2019-08-09] MEDS: CENTRUM SILVER PO SCH (09:52)
[2019-08-09 11:53] LABS: AGAP 10; BUN 8 mg/dL (8-22); CALCIUM 9.3 mg/dL (8.8-10.2); CHLORIDE 104 mmol/L (98-107); COSMO 278; CREATININE 0.7 mg/dL (0.5-0.9); ESTIMATED GFR > 60; GLUCOSE 78 mg/dL (70-104); POTASSIUM 3.9 mmol/L (3.5-5.1); SODIUM 141 mmol/L (136-145); TCO2 27 mmol/L (25-35)
[2019-08-09 12:27] LABS: BASO# 0.01 X1000 (0.0-0.2); BASO% 0.3 % (0.0-0.8); EOS# 0.06 X1000 (0.0-0.7); EOS% 1.6 % (0.0-10.0); HEMATOCRIT 30.7 % (37.0-47.0); HEMOGLOBIN 9.5 g/dL (12.0-16.0); IMM GRAN# 0.03 X1000 (0.0-0.04); IMM GRAN% 0.8 % (0.0-0.5); LYMPH# 0.56 X1000 (1.2-3.4); MCH 26.3 PG (27-31); MCHC 30.9 g/dL (33-37); MONO% 10.7 % (1.7-9.3); MPV 9.9 FL (7.4-10.4); NEUT# 2.67 X1000 (1.4-6.5); NEUT% 71.6 % (42.2-75.2); PLT 222 X1000 (130-400); RBC 3.61 XMIL (4.2-5.4); RDW 17.4 % (11.5-14.5); WBC 3.73 X1000 (4.8-10.8)
--- NOTE | 2019-08-09 14:01 | PROGRESS NOTE ---
DATE: 08/09/2019 INTERVAL HISTORY: The patient is with no further signs or symptoms of bleeding. No acute events overnight. Complaining only of being on a liquid diet, wanting more solid food. REVIEW OF SYSTEMS: Twelve-point review of systems negative except as per interval history. LABS: WBC 3.7, hemoglobin 9.5, hematocrit 30.7, platelets 220,000. Basic metabolic panel unremarkable. OBJECTIVE: Vital signs: T-max 98.8 degrees, pulse 75, respirations 16, blood pressure 123/37, O2 saturation 98% on 4 L by nasal cannula. General: No acute distress. HEENT: Normocephalic, atraumatic. Moist mucous membranes. No cervical adenopathy. Cardiovascular: Regular rate and rhythm. No murmurs noted. Pulmonary: Mildly decreased breath sounds throughout but otherwise clear and without wheezing, rales, or rhonchi. Abdomen: Soft, nontender, nondistended. Bowel sounds positive. Extremities: Peripheral pulses intact. No clubbing or cyanosis. Neurologic: Cranial nerves grossly intact. Mild global weakness unchanged. No focal deficits. Psychiatric: Normal mood and affect. Awake, alert, oriented x3. Skin: No new rashes or lesions identified. ASSESSMENT AND PLAN: 1. Upper gastrointestinal bleed with likely acute blood loss anemia. The patient required transfusion of 1 unit yesterday. Appropriate increase today. We will continue to monitor. If it remains stable, then hopefully we will not need further transfusion. Endoscopy on 08/08/2019 showed likely AVM in the jejunum which was clipped and injected. On clear liquids currently. Advance diet as per GI. 2. Hypertension. Held home Lasix and spironolactone and sildenafil given initial low normal blood pressures. Today, blood pressure creeping up somewhat. Still largely normal, but occasional more significant elevations. We will go ahead and start her home sildenafil, and if blood pressure continues to increase, then we will restart the patient's home spironolactone and Lasix. 3. Pulmonary hypertension. Restart the patient's home sildenafil. We will see if we can restart her home ambrisentan as well. 4. Hypothyroidism. Continue home Synthroid. 5. Chronic obstructive pulmonary disease. No sign of exacerbation. Monitor. 6. Disposition. The patient is from senior care. If she remains stable, then we will anticipate discharge back to senior care on Sunday.
[2019-08-09] MEDS: REVATIO PO SCH ×2 (15:05→17:47)
[2019-08-10] MEDS: SODIUM CHLORIDE 0.9% INJ SCH (06:17)
[2019-08-10] MEDS: PROTONIX IV SCH ×2 (06:17→17:25)
[2019-08-10 07:10] LABS: BASO# 0.01 X1000 (0.0-0.2); BASO% 0.3 % (0.0-0.8); EOS# 0.18 X1000 (0.0-0.7); EOS% 5.1 % (0.0-10.0); HEMATOCRIT 27.4 % (37.0-47.0); HEMOGLOBIN 8.4 g/dL (12.0-16.0); IMM GRAN# 0.02 X1000 (0.0-0.04); IMM GRAN% 0.6 % (0.0-0.5); LYMPH# 0.53 X1000 (1.2-3.4); LYMPH% 14.9 % (20.5-51.1); MCH 26.2 PG (27-31); MCHC 30.7 g/dL (33-37); MCV 85.4 FL (81-99); MONO# 0.51 X1000 (0.11-0.59); MONO% 14.3 % (1.7-9.3); MPV 10.4 FL (7.4-10.4); NEUT# 2.31 X1000 (1.4-6.5); NEUT% 64.8 % (42.2-75.2); PLT 236 X1000 (130-400); RBC 3.21 XMIL (4.2-5.4); RDW 17.3 % (11.5-14.5); WBC 3.56 X1000 (4.8-10.8)
[2019-08-10 07:24] LABS: AGAP 6; BUN 8 mg/dL (8-22); CALCIUM 10.1 mg/dL (8.8-10.2); CHLORIDE 105 mmol/L (98-107); COSMO 278; CREATININE 0.8 mg/dL (0.5-0.9); ESTIMATED GFR > 60; GLUCOSE 98 mg/dL (70-104); POTASSIUM 3.8 mmol/L (3.5-5.1); SODIUM 140 mmol/L (136-145); TCO2 29 mmol/L (25-35)
[2019-08-10] MEDS: ZYLOPRIM PO SCH (08:14)
[2019-08-10] MEDS: MIRALAX PO SCH (08:14)
[2019-08-10] MEDS: ICAR-C PO SCH ×2 (08:14→21:10)
[2019-08-10] MEDS: CENTRUM SILVER PO SCH (08:15)
[2019-08-10] MEDS: REVATIO PO SCH ×3 (08:15→17:26)
[2019-08-10] MEDS: PATIENT'S OWN MED PO SCH (08:15)
[2019-08-10 10:14] LABS: IRON SATURATION 14 %; TIBC 299 ug/dL; TOTAL IRON 42 ug/dL (49-151); UNBOUND IRON 257 ug/dL (112-346)
--- NOTE | 2019-08-10 12:39 | PROGRESS NOTE ---
DATE: 08/10/2019 INTERVAL HISTORY: Patient with no further overt signs or symptoms of bleeding, but does appear to have downtrend in blood counts. Complains only of loose stool this morning, likely associated with laxative. Stool was not melanotic. REVIEW OF SYSTEMS: A 12-point review of systems is negative, except as per interval history. LABORATORY DATA: WBC 3.5, hemoglobin 8.4, hematocrit 27.4, platelets 236,000. Basic metabolic panel unremarkable. Iron 42, TIBC 299, iron sat 14%, ferritin 57 next. OBJECTIVE: Vital Signs: T-max 98.8 degrees, pulse 68, respirations 18, blood pressure 121/43, O2 saturation 100% on room air. General: No acute distress. HEENT: Normocephalic, atraumatic. Moist mucous membranes. No cervical adenopathy. Cardiovascular: Regular rate and rhythm. No murmurs noted. Pulmonary: Mildly decreased breath sounds throughout, stable and likely baseline. No wheezing, rales, or rhonchi. Abdomen: Soft, nontender, nondistended. Bowel sounds positive. Extremities: Peripheral pulses intact. No clubbing or cyanosis. Neurologic: Cranial nerves grossly intact. No focal deficits. Psychiatric: Normal mood and affect. Awake, alert, oriented x3. Skin: No new rashes or lesions identified. ASSESSMENT AND PLAN: 1. Upper gastrointestinal bleed with acute blood loss anemia. Transfused 1 unit on 08/08/2019 with appropriate increase, but trending down again today. 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 Tolerating diet thus far, which is gastrointestinal soft as per Gastroenterology. Continue to monitor blood counts, but if they continue to trend down, then may need further endoscopy versus transfer for pill endoscopy. Will monitor blood counts, and await further recommendations from Gastroenterology. 2. Hypertension. Occasional mild elevations, but largely normal blood pressures off of her home Lasix and spironolactone. Will continue to hold those for now. Monitor. 3. Pulmonary hypertension. The patient's home sildenafil and ambrisentan were restarted. Monitor. 4. Hypothyroidism. Continue home Synthroid. 5. Chronic obstructive pulmonary disease. No sign of exacerbation currently. Monitor. 6. Disposition. If the patient's blood counts stabilize, may be able to discharge back to her senior care in the next 24 to 48 hours, but if blood counts continue to trend down, may need further evaluation.
[2019-08-10] MEDS: MIRALAX PO PRN (21:11)
[2019-08-11] MEDS: PROTONIX IV SCH ×2 (05:38→17:13)
[2019-08-11 07:33] LABS: BASO# 0.02 X1000 (0.0-0.2); BASO% 0.6 % (0.0-0.8); EOS# 0.14 X1000 (0.0-0.7); HEMATOCRIT 28.8 % (37.0-47.0); HEMOGLOBIN 8.7 g/dL (12.0-16.0); LYMPH# 0.47 X1000 (1.2-3.4); LYMPH% 13.3 % (20.5-51.1); MCHC 30.2 g/dL (33-37); MONO# 0.38 X1000 (0.11-0.59); MONO% 10.8 % (1.7-9.3); MPV 9.9 FL (7.4-10.4); NEUT# 2.52 X1000 (1.4-6.5); NEUT% 71.3 % (42.2-75.2); PLT 232 X1000 (130-400); RBC 3.35 XMIL (4.2-5.4); RDW 17.7 % (11.5-14.5); WBC 3.53 X1000 (4.8-10.8)
[2019-08-11 07:50] LABS: AGAP 7; BUN 8 mg/dL (8-22); CALCIUM 9.8 mg/dL (8.8-10.2); CHLORIDE 104 mmol/L (98-107); COSMO 274; CREATININE 0.8 mg/dL (0.5-0.9); ESTIMATED GFR > 60; GLUCOSE 93 mg/dL (70-104); SODIUM 138 mmol/L (136-145); TCO2 27 mmol/L (25-35)
[2019-08-11] MEDS: ZYLOPRIM PO SCH (08:56)
[2019-08-11] MEDS: ICAR-C PO SCH ×4 (08:56→21:28)
[2019-08-11] MEDS: CENTRUM SILVER PO SCH (08:56)
[2019-08-11] MEDS: PATIENT'S OWN MED PO SCH (08:57)
[2019-08-11] MEDS: REVATIO PO SCH ×3 (10:28→18:39)
--- NOTE | 2019-08-11 12:23 | PROGRESS NOTE ---
DATE: 08/11/2019 SUBJECTIVE: The patient was sitting in the bed. She denied any nausea or vomiting or noticing any blood in the stools. She had two bowel movements today, and stated that she was feeling good and was ready to go home if the doctor lets her go home. OBJECTIVE: Vital Signs: Temperature 98.4 degrees, pulse rate is 68, respirations are 16, blood pressure is 117/45, oxygen saturation is 100% on 2 L nasal cannula. weight 129 pounds, BMI 20.0 kg per meter square. General: Alert, oriented x3, and in no acute distress. HEENT: Pale conjunctivae. No icterus. PERRL. Neck: Supple. Cardiovascular: Regular rate and rhythm. No murmurs, rubs, or gallops heard on auscultation. Lungs: Decreased breath sounds in the lower bases. No abnormal breath sounds heard on auscultation. Abdomen: Soft, nontender, nondistended. Active bowel sounds heard in all quadrants. Extremities: No clubbing, cyanosis, or edema noted. Pedal pulses 2+ present bilaterally. Neurological: Alert, oriented x3. IMAGING AND LABORATORY DATA: WBC is 3.53, RBC is 3.35, hemoglobin is 8.7, hematocrit is 28.8, platelet count is 232,000. Sodium is 138, potassium is 4.0, chloride is 104, carbon dioxide is 27, anion gap is 7, BUN is 8, creatinine is 0.8, glucose is 93, calcium is 9.8. Iron is 42. Urine culture on 08/06/[address] of the abdomen and pelvis showed impression of emphysema, renal cyst, prominent atherosclerosis, constipation, and uterine fibroid versus debris in the uterine cavity. ASSESSMENT AND PLAN: Anemia Small bowel Dieulafoy GI bleed Reflux disease Constipation Former smoker PLAN:. The patient is currently on GI soft diet. Her EGD showed normal stomach, normal duodenum and there was evidence of small bowel Dieulafoy at 100 cms from the incisors which was treated and marked with spot. Colonoscopy was canceled. We will continue the patient with GI prophylaxis and antiemetics, miralax PRN. She is on iron tablet and multivitamin. We will advance her diet as tolerated. Patient had received 1 unit of PRBC on 08/08, her hemoglobin and hematocrit today is 8.7 and 28.8, .Will continue to monitor her CBC and BMP and follow her current plan of care per primary care team. Patient to follow up outpatient at our clinic in 4 to 6 weeks after she is discharged. This plan was discussed with Dr. Pennington and the patient, patient acknowledges understanding of the plan of care. Please call us with any further questions or concerns. Dictated by DONNA Cevallos for Jean Pennington MD cc: Jean Pennington MD I have seen the patient myself and agree with the above plan of care. Please call us with any further questions or concerns. ANABELLA
--- NOTE | 2019-08-11 14:22 | Diag Imaging Result Doc PS360 ---
EXAM: CHEST-PORTABLE HISTORY: rehab placement TECHNIQUE: Chest single view COMPARISON: 02/10/2019 FINDINGS: The lungs are well expanded. The heart is mildly enlarged. There are increased interstitial markings throughout both lungs. These are similar to the prior exam. No pleural effusions identified. No consolidation. IMPRESSION: Mild pulmonary edema. Electronically signed by Curtis Campo 08/11/2019 2:20 PM
--- NOTE | 2019-08-11 14:49 | PROGRESS NOTE ---
DATE: 08/11/2019 INTERVAL HISTORY: Patient still with no signs or symptoms of active bleeding. Oxygenation stable on her home O2. No new complaints. No acute events overnight. REVIEW OF SYSTEMS: Twelve point review of systems negative except as per interval history. LABS: WBC 3.5, hemoglobin 8.7, hematocrit 28.8, platelets 232,000. Basic metabolic panel unremarkable. VITAL SIGNS: T-max 98.4 degrees, pulse 68, respirations 16, blood pressure 117/45, O2 saturation 100% on 4 L by nasal cannula. PHYSICAL EXAMINATION: General: No acute distress. Vital signs: As above. HEENT: Normocephalic, atraumatic. Moist mucous membranes. No cervical adenopathy. Cardiovascular: Regular rate and rhythm. No murmurs noted. Pulmonary: Mildly decreased breath sounds throughout but otherwise clear to auscultation. Abdomen: Soft, nontender, nondistended. Bowel sounds positive. Extremities: Peripheral pulses intact. No clubbing, cyanosis. Neurologic: Cranial nerves grossly intact. No focal deficits. Psychiatric: Awake, alert, oriented x3, conversant, follows commands. Skin: No new rashes or lesions identified. ASSESSMENT AND PLAN: 1. Upper gastrointestinal bleed and acute blood loss anemia. Transfused 1 unit 08/08 with appropriate increase. A little bit of a downtrend yesterday but appears stabilized today. Endoscopy on 08/08 showed likely AVM in the jejunum, which was clipped and injected. Tolerating diet well. Continue PPI. As blood counts appear to be stabilizing, likely will be able to discharge back to SNF once bed is available. 2. Hypertension. Good blood pressure control off of her home diuretics. We will continue holding those. 3. Pulmonary hypertension. Continue patient's home sildenafil and ambrisentan. Continue her home oxygen. 4. Hypothyroidism. Continue home Synthroid. 5. Chronic obstructive pulmonary disease. No sign of exacerbation currently. Monitor. 6. Diarrhea. Resolved with holding her laxatives. 7. Disposition. Patient from SNF. Blood counts appear stable. Hopeful for discharge home, back to SNF once bed is obtained, as long as blood counts remain stable.
[2019-08-11] MEDS: SODIUM CHLORIDE 0.9% INJ SCH (17:13)
[2019-08-11] MEDS: MIRALAX PO PRN (21:28)
[2019-08-12] MEDS: PROTONIX IV SCH (05:12)
[2019-08-12 08:07] LABS: AGAP 6; BUN 8 mg/dL (8-22); CALCIUM 9.3 mg/dL (8.8-10.2); CHLORIDE 106 mmol/L (98-107); COSMO 278; CREATININE 0.7 mg/dL (0.5-0.9); ESTIMATED GFR > 60; GLUCOSE 96 mg/dL (70-104); POTASSIUM 3.8 mmol/L (3.5-5.1); SODIUM 140 mmol/L (136-145); TCO2 28 mmol/L (25-35)
[2019-08-12] MEDS: ICAR-C PO SCH (08:26)
[2019-08-12] MEDS: REVATIO PO SCH ×2 (08:26→13:42)
[2019-08-12] MEDS: ZYLOPRIM PO SCH (08:26)
[2019-08-12] MEDS: CENTRUM SILVER PO SCH (08:26)
[2019-08-12 08:27] LABS: BASO# 0.02 X1000 (0.0-0.2); BASO% 0.5 % (0.0-0.8); EOS# 0.12 X1000 (0.0-0.7); EOS% 2.9 % (0.0-10.0); HEMATOCRIT 28.7 % (37.0-47.0); HEMOGLOBIN 8.5 g/dL (12.0-16.0); LYMPH# 0.51 X1000 (1.2-3.4); LYMPH% 12.2 % (20.5-51.1); MCH 26.2 PG (27-31); MCHC 29.6 g/dL (33-37); MCV 88.3 FL (81-99); MONO# 0.44 X1000 (0.11-0.59); MONO% 10.6 % (1.7-9.3); MPV 10.5 FL (7.4-10.4); NEUT# 3.08 X1000 (1.4-6.5); NEUT% 73.8 % (42.2-75.2); PLT 224 X1000 (130-400); RBC 3.25 XMIL (4.2-5.4); WBC 4.17 X1000 (4.8-10.8)
[2019-08-12] MEDS: PATIENT'S OWN MED PO SCH (08:27)
[2019-08-12 12:03] VITALS: BP 139/40
--- NOTE | 2019-08-12 15:03 | DISCHARGE SUMMARY ---
ADMISSION DATE: 08/06/2019 DISCHARGE DATE: 08/12/2019 DIAGNOSES: 1. Gastrointestinal bleed and acute blood loss anemia. Transfuse 3 units packed cells. 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 3. Hypertension. 4. Pulmonary hypertension. 5. Hypothyroid. 6. Chronic obstructive pulmonary disease. 7. Diarrhea, resolved by holding her laxatives. CONSULTS: Dr. Jean Pennington. DIAGNOSTICS: 1. CT of the abdomen and pelvis revealed emphysema, renal cyst, prominent atherosclerosis, constipation, and uterine fibroids. 2. On 08/11/2019, chest x-ray revealed mild pulmonary edema. PROCEDURES: On 08/08/2019, EGD which revealed a jejunal AVM versus Dieulafoy's lesion, status post injection of 3 mL of 1:10,000 epinephrine. HOSPITAL COURSE: Ms. Schulte presented to the emergency room complaining of abdominal cramping and dark tarry stools. Initial hemoglobin and hematocrit were 6.7 and 22.2, for which she received 3 units of packed cells, and today she is 8.4 and 27.4. She underwent an EGD on 08/08/2019, was found to have a jejunal AVM. This was clipped and injected with 3 mL of 1:10,000 epinephrine. She had cessation of bleeding. She has had stools since that were brown. Diet has been advanced to a GI. She is tolerating this without any abdominal pain, nausea, or vomiting. We continued her home medications. She did have diarrhea on admission. Laxatives were held, and this has cleared. Thankfully, she is ready for discharge back to her extended care facility. PHYSICAL EXAMINATION: Discharge Vital Signs: Blood pressure is 139/40, with a heart rate of 76, respirations 20, temperature 98.8 degrees oral, with room air saturations of 100%. Cardiovascular: Regular rate and rhythm. S1 and S2 appreciated. Extremities: She has no lower extremity edema. Calves are nontender bilaterally, with peripheral pulses palpable x4 extremities. Pulmonary: Breath sounds are clear with no increased work of breathing noted. Chest rises and falls symmetric with respiration. Chest wall is nontender to palpation. Gastrointestinal: Abdomen is soft, nontender, and nondistended with bowel sounds in all 4 quadrants. Neurologic: She is alert and oriented x3. Skin: Warm and dry. DISCHARGE MEDICATIONS: 1. Spironolactone 25 mg p.o. daily. 2. Systane eyedrops 1 drop to eyes daily. 3. MiraLAX 17 grams daily p.r.n. constipation. 4. Prilosec 40 mg p.o. daily. 5. Centrum Silver 1 p.o. daily. 6. Melatonin 3 mg p.o. at bedtime. 7. Icar-C 1 p.o. b.i.d. 8. Lasix 20 mg p.o. every other day. 9. Tylenol 650 every 6 hours p.r.n. 10. Sildenafil citrate 20 mg p.o. t.i.d. 11. Letairis 10 mg p.o. daily. 12. Allopurinol 100 mg p.o. daily. FOLLOWUP: 1. She is to follow up her primary care physician in 1 week. They need to call to schedule an appointment. 2. Dr. Pennington 4 to 6 weeks after discharge. They need to call and schedule an appointment. DISPOSITION: She is being discharged back to [facility] in stable condition. TIME SPENT: This is a greater than 30-minute discharge. Dictated by DONNA Bazan for Alexander Quarles MD cc: DONNA Bazan MD
--- NOTE | 2019-08-12 15:11 | GASTROENTEROLOGY PROGRESS NOTE ---
DATE: 08/12/2019 SUBJECTIVE: Patient was sitting at the side of the bed, had finished her breakfast, denied any nausea, vomiting, or diarrhea, had 1 bowel movement today, denied any blood in the stools. She expressed her desire to go home and felt that she is doing much better. OBJECTIVE: Vital signs: Temperature 98.4 degrees, pulse is 69, respirations of 16, blood pressure 159/45, oxygen saturation 100% on 2 L nasal cannula. Weight 129 pounds, BMI 20.0 kg per meter square. General: Alert and oriented x3 and in no acute distress. HEENT: Pale conjunctivae. No icterus. PERRL. Neck: Supple. Cardiovascular: Regular rate and rhythm. No murmurs, rubs, or gallops heard on auscultation. Lungs: Decreased breath sounds in the lower bases. No abnormal breath sounds heard on auscultation. Abdomen: Soft, nontender, nondistended. Active bowel sounds heard in all 4 quadrants. Extremities: No clubbing, cyanosis, or edema noted. Pedal pulses 2+ present bilaterally. Neuro: Alert and oriented x3. IMAGING AND LAB: WBC is 4.77, RBC is 3.25, hemoglobin is 8.1, hematocrit is 28.7, platelet count is 224,000. Sodium 140, potassium is 3.8, chloride is 106, carbon dioxide 28, anion gap of 6, BUN is 8, creatinine 0.7. Iron is 42, TIBC is 299, and calcium is 9.36. Chest x- ray showed mild pulmonary edema. ASSESSMENT: 1. Anemia. 2. Small bowel Dieulafoy 3. GI bleed. 4. Reflux disease. 5. Constipation. 6. Former smoker. PLAN: Patient is on GI soft diet. We will continue with the GI prophylaxis PPI for 3 months for her reflux disease, miralax as needed for her constipation and antiemetics as needed for nausea or vomiting. Her hemoglobin and hematocrit today is 8.1 and 28.7, we will continue her medications iron and multivitamin, monitor her CBC and BMP. We will follow the plan of care as per her primary care team. The patient will follow up outpatient at our clinic in 4 to 6 weeks after she is discharged. This plan was discussed with Dr. Haji and the patient. The patient acknowledges understanding of the plan of care. Please call us with any further questions or concerns. Dictated by DONNA Cevallos for Gustavo Haji MD PHYSICIAN ATTESTATION: I have seen and examined the patient. I have discussed and reviewed the the note by Shawna THOMPSON and agree with findings and plan as documented. In brief, Ms. Pjua Schulte is a 79 year old woman who was admitted with acute blood loss anemia from bleeding jejunal AVM vs. Dieulafoy lesion s/p push enteroscopy on 08/08 with treatment with epinephrine and endoclip placement. The site was tattooed as well. Her hgb has remained stable since procedure and she had not required further transfusion. No complaints and abdominal exam benign. Recommend continuing PPI PO once daily and avoiding blood thinners/NSAIDs. She is ok to be discharged from [facility] with follow-up in 4-6 weeks. Will sign off. Please call with questions. MTDD
--- NOTE | 2019-08-12 15:40 | DISCHARGE SUMMARY ---
ADMISSION DATE: 08/06/2019 DISCHARGE DATE: 08/12/2019 DIAGNOSES: 1. 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 2. Hypertension. 3. Pulmonary hypertension. 4. Hypothyroid. 5. Chronic obstructive pulmonary disease. 6. Diarrhea, resolved by holding her laxatives. DIAGNOSTICS: 1. 08/06/2019 - CT of abdomen and pelvis revealed emphysema, renal cyst, constipation and uterine fibroids. 2. 08/11/2019 - Chest x-ray reveals mild pulmonary edema. 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 She was subsequently injected with 3 mL of epinephrine, 1:10,000 with cessation of bleeding. HOSPITAL COURSE: Ms. Schulte proceeded to the emergency room with complaint of dark stools and abdominal cramping. She was found to have a hemoglobin and hematocrit of 6.7 and 22 for which she was transfused 3 units of packed cells. Hemoglobin has been stable at 8.4 to 9.5 with hematocrit of 27 to 30. 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 She was subsequently injected with 3 mL of epinephrine. She has had no further bleeding. Diet has been advanced to a GI soft with no abdominal pain, black or bloody stools. She has had two bowel movements since the procedure. We continued her home medications as appropriate. Thankfully, today she is ready for discharge back to [facility]. DISCHARGE PHYSICAL EXAMINATION: VITAL SIGNS: Blood pressure 139/40 with a heart rate of 76, respirations 20, temperature 98.8 with emeli air saturations of 100%. CARDIOVASCULAR: Regular rate and rhythm. S1 and S2 are appreciated. EXTREMITIES: She has no lower extremity edema. Peripheral pulses are palpable x4 extremities. Calves are nontender bilateral. PULMONARY: Breath sounds are clear. No increased work with breathing noted. Chest rise and fall symmetrical with respirations. GASTROINTESTINAL: Abdomen soft, nontender and nondistended with bowel sounds in all 4 quadrants. DISCHARGE MEDICATIONS: 1. Spirolactone 25 mg p.o. daily. 2. Systane eye drops 1 one drop each eye daily. 3. MiraLAX 17 g p.o. daily p.r.n. constipation. 4. Prilosec 40 mg p.o. daily. 5. Centrum Silver one p.o. daily. 6. Melatonin 3 mg tablets, one nightly. 7. Icar-C 1 p.o. b.i.d. 8. Lasix 20 mg p.o. every other day. 9. Tylenol 650 every 6 hours p.r.n. FOLLOW UP: PCP in 1 week She is being discharged to SNF in stable condition. Dictated by DONNA Bazan for Alexander Quarles MD cc: DONNA Bazan MD [facility]
== END 2019-08-12 16:05 | DRG 378 ==
LOC: SUPCPDRO → ED 14:03 → 3N 18:56 → SUATTDRO 18:56
PROVIDERS: ATTEND Internal Medicine

== ENCOUNTER 2019-09-01 12:04 | Inpatient (IN) ==
[2019-09-01 13:50] LABS: BASO# 0.01 X1000 (0.0-0.2); BASO% 0.2 % (0.0-0.8); EOS# 0.04 X1000 (0.0-0.7); EOS% 0.7 % (0.0-10.0); HEMATOCRIT 22.8 % (37.0-47.0); HEMOGLOBIN 6.5 g/dL (12.0-16.0); LYMPH# 0.44 X1000 (1.2-3.4); LYMPH% 7.9 % (20.5-51.1); MCH 25.2 PG (27-31); MCHC 28.5 g/dL (33-37); MCV 88.4 FL (81-99); MONO# 0.53 X1000 (0.11-0.59); MONO% 9.5 % (1.7-9.3); MPV 9.9 FL (7.4-10.4); NEUT# 4.53 X1000 (1.4-6.5); NEUT% 81.7 % (42.2-75.2); PLT 264 X1000 (130-400); RBC 2.58 XMIL (4.2-5.4); RDW 17.6 % (11.5-14.5); WBC 5.55 X1000 (4.8-10.8)
[2019-09-01 14:15] LABS: AGAP 9; ALB/GLOB RATIO 1.1; ALKALINE PHOSPHATASE 114 U/L (32-104); BUN 21 mg/dL (8-22); CALCIUM 10.4 mg/dL (8.8-10.2); CHLORIDE 101 mmol/L (98-107); COSMO 277; CREATININE 0.8 mg/dL (0.5-0.9); ESTIMATED GFR > 60; GLUCOSE 103 mg/dL (70-104); GOT 16 U/L (10-30); GPT 6 U/L (10-36); SODIUM 137 mmol/L (136-145); TCO2 27 mmol/L (25-35); TOTAL BILIRUBIN 0.21 mg/dL (0.20-1.00); TOTAL PROTEIN 7.6 g/dL (6.3-8.3)
--- NOTE | 2019-09-01 14:21 | PROVIDER DOCUMENTATION ---
HPI-Abdominal Pain/GI Problem - General Chief Complaint: GI Bleed Stated Complaint: Possible GI Bleed Time Seen by Provider: 09/01/19 13:05 Source: patient Allergies/Adverse Reactions: Patient Allergies Allergy/AdvReac Type Severity Reaction Status Date / Time Sulfa (Sulfonamide Allergy Severe SWELLING Verified 09/01/19 15:35 Antibiotics) TO THROAT, [Sulfa(Sulfonamide TONGUE, Antibiotics)] HIVES amoxicillin Allergy Unknown Verified 09/01/19 15:35 clarithromycin [From Biaxin] Allergy Unknown Verified 09/01/19 15:35 amoxicillin trihydrate * AdvReac Mild DIARRHEA Verified 09/01/19 15:35 [From Augmentin] potassium clavulanate * AdvReac Mild DIARRHEA Verified 09/01/19 15:35 [From Augmentin] metoprolol AdvReac Unknown Verified 09/01/19 15:35 Home Medications: Home Medication List Medication Instructions Recorded Confirmed Last Taken Type Furosemide [Lasix] 20 mg PO EVERY OTHER DAY 12/29/15 09/01/19 08/05/19 History Ambrisentan [Letairis] 10 mg PO DAILY 05/04/17 09/01/19 03/25/19 History Spironolactone 25 mg PO DAILY 05/04/17 09/01/19 03/25/19 History Vit D3-Vit K/Berberine/Hops 1 each PO DAILY 05/04/17 09/01/19 08/06/19 History [Ostera Tablet] Allopurinol 100 mg PO QAM 02/11/19 09/01/19 03/25/19 History Melatonin/Pyridoxine HCl (B6) 3 mg PO QHS 02/11/19 09/01/19 08/05/19 History [Melatonin 3 mg Tablet] Propylene Glycol/Peg 400 [Systane 1 ea OPH DAILY 02/11/19 09/01/19 03/25/19 Hi story 0.3-0.4% Eye Drops] Sildenafil Citrate 20 mg PO TID 02/11/19 09/01/19 03/25/19 History Acetaminophen [Tylenol] 650 mg PO Q6H PRN PRN tab 08/12/19 09/01/19 Unknown Rx Iron Carbonyl/Ascorbic Acid 1 ea PO BID tab 08/12/19 09/01/19 Unknown Rx [Icar-C] Multivitamins/Minerals [Centrum 1 ea PO DAILY tab 08/12/19 09/01/19 Unknown Rx Silver] Polyethylene Glycol 3350 [Miralax] 17 gm PO DAILY PRN PRN powder, 08/12/19 09/01/19 Unknown Rx packet - History of Present Illness-ABD Nature of Presenting Problems: 79 yr old F, presents with three day hx of dark stools, mild fatigue, was noted to have hemoglobin of 6.7 at her [place] [facility] today. The pt has required multiple transfusions in the past year - was recently seen earlier this month for similar symptoms. H/H noted to be 6.5/22.8, which has dropped from 8.5 and 2 8.7 on August 12. Pt had endoscopy on August 06. Onset/Duration: reports: 3 days ago Review of Systems - Adult - REVIEW OF SYSTEMS - ADULT Constitutional: reports: fatique Eyes: reports: no symptoms reported Ears, Nose, Mouth & Throat: reports: no symptoms reported Cardiovascular: reports: no symptoms reported Respiratory: reports: no symptoms reported Gastrointestinal: reports: other (dark stools) Genitourinary: reports: no symptoms reported Musculoskeletal: reports: no symptoms reported Integumentary: reports: no symptoms reported Neurological: reports: no symptoms reported Hematologic/Lymphatic: reports: transfusions Past History - Adult - PAST MEDICAL HISTORY-ADULT Review of Records: reports: Old Records Reviewed, Nursing Assessment Review Major Childhood Illnesses: reports: denies history Cardiovascular: reports: CAD, HTN, other Respiratory: reports: lung disease Gastrointestinal: reports: denies history Obstetrical/Gynecological: reports: denies history Genitourinary: reports: denies history Musculoskeletal: reports: denies history Neurological: reports: denies history Endocrine/Immune: reports: thyroid disorder Other Conditions: reports: denies history - PRIOR SURGERIES/PROCEDURES Surgical/Procedure History: reports: BTL, other, appendectomy - PRIOR HOSPITALIZATIONS Prior Hospitalizations: reports: none - IMMUNIZATION STATUS Childhood Immunizations: See Nurse Assessment Flu Vaccine: See Nurse Assessment - FAMILY HISTORY Family History: reviewed, not pertinent Physical Exam-General - PHYSICAL EXAM-ADULT Initial Vital Signs Reviewed: Yes - CONSTITUTIONAL General Appearance: alert, no apparent distress, thin - EYES Eyes: PERRL/EOMI - HEAD, EARS, NOSE, MOUTH & THROAT HENMT: normocephalic/atraumatic, moist mucous membranes - RESPIRATORY Respiratory: lungs clear, normal breath sounds - CARDIOVASCULAR Cardiovascular: regular rate, rhythm - GASTROINTESTINAL (ABDOMEN) Abdominal Exam: normal bowel sounds, non tender, soft - GENITOURINARY Rectal Exam: normal rectal tone, black stool - SKIN Integumentary: warm/dry, pallor - PSYCHIATRIC Psych/Mental Status: oriented x 3 Progress - PLAN OF CARE/RESULTS Progress/Plan/Lab Results: Vital Signs - 8 hr 09/01/19 12:48 09/01/19 12:59 Temperature 98.6 F Pulse Rate 86 83 Respiratory Rate 20 16 Blood Pressure 112/39 154/55 O2 Sat by Pulse Oximetry 100 98 Laboratory Results - last 24 hr 09/01/19 09/01/19 13:12 13:12 WBC 5.55 RBC 2.58 L Hgb 6.5 L Hct 22.8 L MCV 88.4 MCH 25.2 L MCHC 28.5 L RDW Std Deviation 17.6 H Plt Count 264 MPV 9.9 Immature Gran % (Auto) 0.0 Neut % (Auto) 81.7 H Lymph % (Auto) 7.9 L Marshall % (Auto) 9.5 H Eos % (Auto) 0.7 Baso % (Auto) 0.2 Immature Gran # (Auto) 0.00 Neut # (Auto) 4.53 Lymph # (Auto) 0.44 L Marshall # (Auto) 0.53 Eos # (Auto) 0.04 Baso # (Auto) 0.01 Sodium 137 Potassium 4.0 Chloride 101 Carbon Dioxide 27 Anion Gap 9 BUN 21 Creatinine 0.8 Estimated GFR/1.73 m2 > 60 BUN/Creatinine Ratio 26 Glucose 103 Calculated Osmolality 277 Calcium 10.4 H Total Bilirubin 0.21 AST 16 ALT 6 L Alkaline Phosphatase 114 H Total Protein 7.6 Albumin 4.0 Globulin 3.6 Albumin/Globulin Ratio 1.1 Orders Category Date Time Status CBC WITH ELECTRONIC DIFF [HEME] Stat Lab 09/01/19 13:12 Completed COMPREHENSIVE METABOLIC PANEL [CHEM] Stat Lab 09/01/19 13:12 Received OCCULT BLOOD SCREENING [STOOL] Stat Lab 09/01/19 13:34 Ordered TYPE & SCREEN [BBK] Stat Lab 09/01/19 14:15 Uncollected H/H 6.5/22.7, down from August 12. Spoke with Dr. Haji, who will plan for endoscopy tomorrow; spoke with hospitalist who agrees to accept. Pt and daughter made aware of the plan. Result Diagrams: 09/01/19 13:12 09/01/19 13:12 - CONSULTS/PCP/HOSPITALIST Notification #1 *Consult/PCP/Hospitalist*: Dr. Haji (GI) Time Discussed: 14:35 Reason/Comments: will do endoscopy tomorrow; place on PPIs, clears Consult Disposition: Admit #2 Consult: Linda for Dr. Bustillo Time Discussed: 14:46 Consult Disposition: Admit Departure - Departure Date of Disposition Decision: 09/01/19 Time of Disposition Decision: 14:48 DIAGNOSIS: Anemia, GI bleed Disposition: ADMITTED INPATIENT 09 Certified Medical Emergency: Emergent Condition: Fair - Critical Care Note This patient required my direct & personal management of CC.: No Attestation - Physician/ ISIS Attestation Patient care was provided by Advanced Practice Provider:: No The physician spent face to face time with patient:: Yes Advanced Practice Provider documentation review:: Supervising physician onsite and consulted in the evaluation and care of this patient. The physician did have a face to face encounter with the patient.
[2019-09-01] MEDS ORDERED: PROTONIX PO ONE (14:40)
[2019-09-01] MEDS ORDERED: TYLENOL PO PRN (15:51)
[2019-09-01] MEDS ORDERED: ZOFRAN IV PRN (15:51)
[2019-09-01] MEDS: NS 500 ML IV SCH (17:16)
--- NOTE | 2019-09-01 18:18 | HISTORY AND PHYSICAL ---
PRIMARY CARE PROVIDER: DONNA Westfall CHIEF COMPLAINT: Dark stools, fatigue, no energy for the past 3 days that progressively worsened. HISTORY OF PRESENTING ILLNESS: This is a 79-year-old female, who presents to [facility] with complaints of a 3-day history of dark tarry stools and fatigue that progressively worsened. She was in the hospital on 08/06/2019 through 08/12/2019 with a GI bleed and acute blood loss anemia. Had jejunal arteriovenous malformation clipped and injected on 08/08/2019 and was discharged back to [facility] at that time. Now she is noted to have a hemoglobin of 6.5 and hematocrit 22.8. Her stool for occult blood was positive so she will be admitted for further evaluation and treatment. PAST MEDICAL HISTORY: Coronary artery disease, hypertension, GI bleed, and hypothyroidism. PAST SURGICAL HISTORY: Bilateral tubal ligation and appendectomy. FAMILY HISTORY: Reviewed and noncontributory. SOCIAL HISTORY: She currently resides at [facility]. Denies any tobacco use, stating she quit approximately 5 years ago. Denied any alcohol or illicit drug use. ALLERGIES: Sulfa, amoxicillin, Augmentin, and metoprolol. HOME MEDICATIONS: We will need to obtain a current list, reconcile, review, and restart as appropriate. We will place an order for Nursing to update and confirm home medications. LABORATORY DATA: White blood cell count of 5.55, hemoglobin 6.5, hematocrit 22.8, platelets 264,000. Sodium 137, potassium 4, chloride 101, CO2 of 27, BUN of 21, creatinine 0.8 glucose 103. REVIEW OF SYSTEMS: She denied any fever, chills, blurred vision. She was positive for some mild dizziness, fatigue, no energy. Denied any chest pain, coughing, or shortness of breath. Denied any abdominal pain, constipation, was positive for dark tarry stools. Denied any diarrhea. Denied any burning or hurting with urination. PHYSICAL EXAMINATION: VITAL SIGNS: On arrival she had a temperature of 98.6 degrees, pulse 86, respirations 20, blood pressure 112/39 saturating 100% on room air. GENERAL: This is a 79-year-old female, who is lying in the bed and answers questions appropriately. HEMNT: Normocephalic, atraumatic. Normal ENT inspection. Oropharynx and nares are clear. EYES: Pupils are equal, round, and reactive to light and accommodation. Extraocular movements are intact. NECK: Normal inspection. Normal range of motion. LUNGS: Clear to auscultation bilaterally with equal lung expansion and chest wall movement. HEART: Regular rate and rhythm. No murmurs, rubs, or gallops. ABDOMEN: Soft, nontender, nondistended. Bowel sounds are present x4 quadrants. MUSCULOSKELETAL: She had 5/5 strength x4 extremities. NEUROLOGICAL: The cranial nerves 2-12 appear grossly intact. ASSESSMENT: 1. Gastrointestinal bleed. 2. Symptomatic anemia. 3. Hypertension. 4. Coronary artery disease, history of. OUR PLAN: She will be admitted to the medical unit, placed on telemetry. We will transfuse 2 units of packed red blood cells today. Consult Gastroenterology. Update and confirm home medications as previously identified. Place on Protonix 40 mg IV q.12 h. We will recheck a CBC, BMP in the a.m. Further orders after seen by attending and by creative consultant. Dictated by DONNA Dickens for Alexander Quarles MD cc: DONNA Dickens MD [facility]
--- NOTE | 2019-09-01 20:06 | EKG Report ---
Test Performed on : 09/01/2019 6:50:50 PM Test Reason : 2 SEC PAUSES Blood Pressure : / mmHG Vent. Rate : 080 BPM Atrial Rate : 080 BPM P-R Int : 204 ms QRS Dur : 090 ms QT Int : 352 ms P-R-T Axes : 060 080 045 degrees QTc Int : 405 ms Normal sinus rhythm. Nonspecific ST abnormality Abnormal ECG When compared with ECG of 06-AUG-2019 15:24, (Unconfirmed) No significant change was found Confirmed by Hollis POLLOCK, Dusty Gordon ([id number]) on 09/02/2019 7:19:24 AM
--- NOTE | 2019-09-01 20:35 | HISTORY AND PHYSICAL ---
HISTORY AND PHYSICAL ADDENDUM: The patient seen and examined by me face to face. All the laboratory, vital signs, and images were reviewed. The patient presented to the emergency department with a chief complaint of dark stools, fatigue. As per the patient, last Sunday, 4 days ago, her hemoglobin was above 9, and she has been seen by Dr. Hannon today. Her hemoglobin is 6.5. She will receive a couple units of PRBCs, and she will be admitted and evaluated by Gastroenterology Department. She was recently discharged due to gastrointestinal bleed, where she received 3 units of PRBCs. She had a jejunal AV malformation clipped and injected on 08/08/2019. She also has history hypertension, pulmonary hypertension, hypothyroidism, COPD. On my physical exam, she is not complaining of chest pain or shortness of breath. Mild abdominal discomfort, but no signs of peritoneal irritation. Chest clear to auscultation. No wheezing, no rales. Prolonged expiratory phase. Some crepitus at the bases. I agree with the rest of the nurse practitioner's assessment and plan. cc: Alexander Quarles MD
[2019-09-02 02:39] LABS: AGAP 8; BUN 18 mg/dL (8-22); CALCIUM 10.4 mg/dL (8.8-10.2); CHLORIDE 102 mmol/L (98-107); COSMO 278; CREATININE 0.7 mg/dL (0.5-0.9); ESTIMATED GFR > 60; GLUCOSE 101 mg/dL (70-104); MAGNESIUM 2.2 mg/dL (1.5-2.7); PHOSPHORUS 1.9 mg/dL (2.7-4.5); POTASSIUM 4.1 mmol/L (3.5-5.1); SODIUM 138 mmol/L (136-145); TCO2 28 mmol/L (25-35)
[2019-09-02] MEDS ORDERED: SODIUM CHLORIDE 0.9% INJ SCH (03:00)
[2019-09-02] MEDS ORDERED: PROTONIX IV SCH (03:00)
[2019-09-02 06:46] LABS: BASO# 0.01 X1000 (0.0-0.2); BASO% 0.2 % (0.0-0.8); EOS# 0.09 X1000 (0.0-0.7); EOS% 2.2 % (0.0-10.0); HEMATOCRIT 27.7 % (37.0-47.0); HEMOGLOBIN 8.3 g/dL (12.0-16.0); LYMPH# 0.45 X1000 (1.2-3.4); LYMPH% 10.8 % (20.5-51.1); MCH 25.9 PG (27-31); MCV 86.6 FL (81-99); MONO# 0.53 X1000 (0.11-0.59); MONO% 12.7 % (1.7-9.3); MPV 10.1 FL (7.4-10.4); NEUT# 3.08 X1000 (1.4-6.5); NEUT% 74.1 % (42.2-75.2); PLT 239 X1000 (130-400); RDW 16.4 % (11.5-14.5); WBC 4.16 X1000 (4.8-10.8)
[2019-09-02 06:53] LABS: AGAP 5; BUN 16 mg/dL (8-22); CALCIUM 10.6 mg/dL (8.8-10.2); CHLORIDE 103 mmol/L (98-107); COSMO 277; CREATININE 0.8 mg/dL (0.5-0.9); ESTIMATED GFR > 60; GLUCOSE 100 mg/dL (70-104); POTASSIUM 4.2 mmol/L (3.5-5.1); SODIUM 138 mmol/L (136-145); TCO2 30 mmol/L (25-35)
[2019-09-02] MEDS ORDERED: DIPRIVAN 1% ONE (11:37)
[2019-09-02] MEDS ORDERED: XYLOCAINE-MPF 2% ONE (11:38)
[2019-09-02] MEDS ORDERED: FENTANYL ONE (11:39)
--- NOTE | 2019-09-02 12:13 | ENDOSCOPY OPERATIVE NOTE ---
[facility] ENDOSCOPY OPERATIVE NOTE , PATIENT: Puja Schulte ADMISSION DATE: 09/02/2019 MR#: [id number] : 1940 EGD PROCEDURE REPORT PROCEDURE DATE: 09/02/2019 SURGEON: Gustavo Haji MD STATUS: inpatient TAILING HAND: PREOPERATIVE DIAGNOSIS: The patient is a 79 yr old female here for an EGD due to anemia and melena. Recent admission for GI bleed found to have bleeding jejunal AVM on 08/08/2019 s/p epinephrine injection and Endoclip p lacement. PROCEDURE PERFORMED: EGD, diagnostic MEDICATIONS: Per Anesthesia TOPICAL ANESTHETIC: none CONSENT: The patient understands the risks and benefits of the procedure and understands that these r isks include, but are not limited to: sedation, allergic reaction, infection, perforation and/or bleeding. Alternative means of evaluation and treatment include, among others: physical exam, x-rays, and/or surgical intervention. The patient elects to proceed with this endoscopic procedure. HISORY AND PHYSICAL: 09/02/2019 DESCRIPTION OF PROCEDURE: During intra-op preparation period all mechanical and medical equipment was checked for proper function. Hand hygiene and appropriate measures for infection prevention was taken. After the risks, benefits and alternatives of the procedure were thoroughly explained, Informed consent was verified, confirmed and timeout was successfully executed by the treatment team. The patient was anesthetized with topical anesthesia and the [id number] ([id number]) endoscope was introduced through the mouth and advanced to the proximal jejunum to 140 cm f rom incisors. Retroflexion was performed in the stomach and revealed no abnormalities. The gastroscope was then sl owly withdrawn and removed. ESOPHAGUS: The mucosa of the esophagus appeared normal. STOMACH: The stomach was normal. JEJUNUM / ILEUM: Faint tattoo found at approximately 100cm from incisors. SPECIMENS REMOVED: No ADVERSE EVENTS: There were no complications. POSTOPERATIVE DIAGNOSIS: 1. The mucosa of the esophagus appeared normal 2. The stomach was normal 3. Faint tattoo found at approximately 100cm from incisors RECOMMENDATIONS: Advance diet as tolerated Recommend transition PPI to PO once daily Patient will need outpatient capsule endoscopy to evaluate small bowel REPEAT EXAM: Gustavo Haji MD eSigned: Gustavo Haji MD 09/02/2019 12:13 PM cc: PATIENT NAME: Puja Schulte MR#: [id number]
--- NOTE | 2019-09-02 12:26 | GASTROENTEROLOGY CONSULTATION ---
DATE: 09/02/2019 REASON FOR CONSULTATION: Melena, acute blood loss anemia. HISTORY OF PRESENT ILLNESS: Ms. Puja Schulte is a 79-year-old woman with past medical history of hypertension, hyperlipidemia, coronary artery disease, CHF, COPD on 4 L of home O2, pulmonary hypertension on Letairis, PAD status post CEA bilaterally, and history of small-bowel angiectasias with bleeding, who presents with 4 days of melena and lightheadedness. The patient reports being in her usual state of health until about last when she noticed some increased fatigue and generalized weakness, as well as lightheadedness. Last Sunday, she started having black, tarry stools once daily, and presented here yesterday with these symptoms. She says that since her last admission here earlier this month, she has been having normal brown stools. However, she has been constipated. She denies any bright red blood per rectum, hematemesis, abdominal pain, nausea, or vomiting. No chest pain or shortness of breath. She has lost 2 pounds since her discharge previously. She attributes her bleeding to increase dosage of her Letairis from 5 mg to 10 mg. She is not on any blood thinners. No NSAID use. REVIEW OF SYSTEMS: As per HPI, otherwise 12-point review of systems is negative. PAST MEDICAL HISTORY: As per HPI. Other notable past medical history includes a prior history of esophageal dilation, anemia. PAST SURGICAL HISTORY: Appendectomy, partial thyroidectomy, CEA on the right x2, tubal ligation. FAMILY HISTORY: She has a cousin who had colorectal cancer. SOCIAL HISTORY: Prior smoker, quit in 2013. No alcohol or drug use. MEDICATIONS: Medications have not been reconciled in the chart. Her discharge medications from 08/12/2019 showed that she was on spironolactone, Systane eyedrops, MiraLAX, Prilosec 40 mg once daily, Centrum, melatonin, Icar-C, Lasix, Tylenol, sildenafil, Letairis, allopurinol. ALLERGIES: Sulfa, amoxicillin, Augmentin, and metoprolol. PHYSICAL EXAMINATION: Vital Signs: Temperature is 97.8 degrees, heart rate 66, respiratory rate 16, blood pressure 134/39, O2 saturation 100% on 2 L nasal cannula. General: The patient is awake, alert, oriented, no acute distress. HEENT: Sclerae anicteric. Moist mucous membranes. Extraocular motor intact. Neck: Supple. No JVD or lymphadenopathy. Cardiac: Regular rate and rhythm. No murmurs. Lungs: Decreased breath sounds bilaterally. No wheezing. Abdomen: Soft, nontender, nondistended. Normoactive bowel sounds. No rebound or guarding. Extremities: No clubbing, cyanosis, or edema. Neurologic: Nonfocal. LABORATORY DATA: White count of 4.1, hemoglobin 8.3 from 6.5 after receiving 2 units of packed red blood cells, platelets are 239,000. Sodium 138, potassium 4.2, chloride of 103, bicarb of 30, BUN of 16, creatinine 0.8, glucose of 100. Phosphorus of 1.9. LFTs showed alkaline phosphatase of 114, ALT of 6, otherwise unremarkable. IMAGING: None. ASSESSMENT AND PLAN: Ms. Puja Schulte is a 79-year-old woman with multiple medical problems as documented in the history of present illness, who presents with symptomatic anemia in the setting of melena. 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 There was a clot associated with it at that time. It was injected with epinephrine, and a clip was deployed, and the area was tattooed. She did well postprocedure, and was discharge in stable condition on proton pump inhibitor once daily. She represents with similar symptoms, likely from recurrent bleeding in that area. We have made her nothing by mouth this morning, and will plan to repeat enteroscopy again. She is currently on a proton pump inhibitor intravenously 40 mg twice daily. Will continue Zofran as needed for nausea, and trend her hemoglobin and hematocrit daily. Transfuse for a goal hemoglobin of 7 to 8. There will need to be some sort of discussion postprocedure about whether she should continue on Letairis in the setting of profound anemia and recurrent gastrointestinal bleeding as this medication can cause anemia on its on. Thank you for this consult. Will follow with you. Please call with any questions or concerns.
--- NOTE | 2019-09-02 13:39 | PROGRESS NOTE ---
DATE: 09/02/2019 She was seen by DONNA Westfall. She came in with dark stools, fatigue, no energy in the past 3 days, progressively worsened. A 79-year-old who presented to [facility] with complaints of a 3-day history of dark tarry stools and fatigue, and progressive worsening. She was in the hospital on 08/06/2019 and 08/12/2019 with a GI bleed, had jejunal AV malformation. She, I think, had injections into these AV malformations, 08/08/2019, discharged to [facility]. Noticed hemoglobin of 6.5, hematocrit of 22. Her stool was positive for occult blood. PAST MEDICAL HISTORY: Includes coronary artery disease, hypertension, gastroesophageal bleed, and hypothyroidism. SURGICAL HISTORY: Bilateral tubal ligation and an appendectomy. Admitted with GI bleed. States she is feeling better today. Temperature is 97.8 degrees, pulse 66, respirations 16, blood pressure 134/39. Pupils are equal and round. Lungs are clear in all lung colon. Cardiovascular Examination: Regular rhythm and rate without murmur or S3. Abdomen is soft, nondistended, nontender. ASSESSMENT AND PLAN: 1. She has a history of anemia in the setting of melena. She underwent esophagogastroduodenoscopy on 08/08/2019. 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 There was a clot associated with it at that time. It was injected with epinephrine and a clip was deployed. The area was tattooed. She did well with the procedure. She is on a proton pump inhibitor once a day. She presents with similar symptoms and so plan to repeat esophagogastroduodenoscopy per Dr. Haji. 2. Anemia. Continue to watch hemoglobin and hematocrit. Suspect this is from gastrointestinal blood loss. 3. Hypertension. 4. History of coronary artery disease. No sign of active ischemia. 5. Hematocrit today 27, hemoglobin 8.3. Electrolytes look good. REVIEW OF HER ORDERS: She is on Protonix 40 mg p.o. daily and I think she is being held NPO. I think the plan is for another EGD. cc: Tristin Garcia MD
[2019-09-02] MEDS: NS 500 ML IV SCH (19:49)
[2019-09-03] MEDS: PROTONIX PO SCH (06:07)
[2019-09-03 10:48] LABS: URINE SOURCE CLEAN CATCH
--- NOTE | 2019-09-03 10:48 | PROGRESS NOTE ---
DATE: 09/03/2019 SUBJECTIVE: Ms. Schulte is a 79-year-old with multiple medical problems documented, has symptomatic anemia in the setting of melena. 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 There was clot associated with it at that time, she was injected with epinephrine and a clip was deployed and it was tattooed. She was discharged after that on proton pump inhibitor. She presents with similar symptoms, likely from recurrent bleed in that area. So, the plan is to repeat endoscopy and I believe an EGD. This was done on 09/02/2019. The mucosa of the esophagus appears normal. The stomach was also normal. So the question is if we need to pursue small bowel studies again. I think she has had this done, both the capsule and small bowel endoscopy. She is feeling better. OBJECTIVE: Vital signs: Temperature 97.8 degrees, pulse 68, respirations 16, blood pressure 166/52. HEENT: Pupils are equal and round. Lungs: Clear in all lung colon. Cardiovascular: Regular rhythm and rate without murmur or S3. Abdomen: Soft. Skin: Warm and dry. I do not see this in past history, but apparently she is also getting treated for pulmonary hypertension and so she was asking about her medications. MEDICATIONS AT HOME: She seemed to indicate she is on sildenafil 20 mg p.o. t.i.d. so we will make sure she gets that started back. PLAN: Discussed with Dr. Haji what the plan is. She is a resident of [facility], so hopefully we can we can get her back to [facility] soon. cc: Tristin Garcia MD
[2019-09-03 10:55] LABS: BILIRUBIN URINE NEGATIVE (NEGATIVE); BLOOD URINE NEGATIVE (NEGATIVE); COLOR YELLOW; GLUCOSE URINE NEGATIVE (NEGATIVE); KETONE URINE NEGATIVE (NEGATIVE); LEUKOCYTES URINE NEGATIVE (NEGATIVE); NITRITE URINE NEGATIVE (NEGATIVE); PH URINE 6.5; PROTEIN URINE NEGATIVE (NEGATIVE); SP GRAVITY URINE 1.009; TURBIDITY URINE CLEAR (CLEAR); UR EPITHELIAL CELLS <10 /HPF (<10); URINE BACTERIA NEGATIVE /HPF; URINE RBC <10 /HPF (<10); URINE WBC <10 /HPF (<10); UROBILINOGEN URINE NORMAL (NORMAL)
--- NOTE | 2019-09-03 11:30 | GASTROENTEROLOGY PROGRESS NOTE ---
DATE: 09/03/2019 SUBJECTIVE: Ms. Schulte is 79-year-old female who is sitting in the bed, having her breakfast. She has denied any nausea, vomiting or having any bowel movements today. OBJECTIVE: Vital Signs: Temperature 97.8 degrees, pulse is 68, respirations 16, blood pressure is 166/52, oxygen saturation is 100% on 4 L nasal cannula. Her weight is 113 pounds. BMI is 18.8 kg/m2. General: She is alert and oriented x3, and in no acute distress. HEENT: Pale conjunctivae. No icterus. PERRL. Neck: Supple. Abdomen: Soft, nontender, nondistended. Active bowel sounds heard in all 4 quadrants. Lungs: Clear to auscultation. Cardiovascular: Regular rate and rhythm. Extremities: No clubbing, cyanosis, or edema noted. Pedal pulses 2+ bilaterally. Neurological: Alert, oriented x3. Labs: WBCs 4.16, RBCs 3.20, hemoglobin 8.3, hematocrit 27.7, platelet count is 239,000. Sodium 138, potassium 4.2, BUN is 16, creatinine is 0.8, calcium 10.6, phosphorus 1.9, magnesium 1.2. AST 16, ALT 6, alkaline phosphatase is 114, total bilirubin is 0.21. IMPRESSION: 1. Gastrointestinal bleed. 2. Anemia. 3. Chronic obstructive pulmonary disease. 4. Coronary artery disease. 5. Congestive heart failure. 6. Hypertension. 7. Hyperlipidemia. PLAN: We did an EGD yesterday and the findings were esophagus was normal, stomach was normal. Jejunum/ileum had faint tattoo found approximately 100 cm from the incision. The plan is to send her [facility] for a capsule endoscopy to evaluate the small bowel. We will continue with Protonix 40 mg daily for GI bleed. She is on iron for anemia. We will continue to monitor her H & H and follow the plan of care per PCP. This plan was discussed with Dr. Haji. Please call us for any further questions or concerns. Dictated by DONNA Cevallos for Gustavo Haji MD Physician Attestation I have seen and examined the patient. I have discussed and reviewed the the note by Shawna THOMPSON and agree with findings and plan as documented. In brief, Ms. Puja Bradley is a 79 year old woman with MMP as described in initial consult note who presented with with symptomatic anemia in setting of melena. EGD with push enteroscopy on 09/02 was unrevealing for source of bleeding. Her hgb was 8.3 post-transfusion. She denies any further melena. Will recheck. If stable, then patient can be discharged with plan to return to [facility] for repeat capsule endoscopy. She was advised to discuss with her primary bridge attacher whether she should continue her Letairis given risk of contributing to her anemia. Recommend continued PPI PO BID. Will follow with you ANABELLA
[2019-09-03] MEDS: REVATIO PO SCH ×2 (12:55→17:52)
[2019-09-03] MEDS: ICAR-C PO SCH (21:17)
[2019-09-04] MEDS: PROTONIX PO SCH (06:08)
[2019-09-04 07:08] LABS: BASO# 0.01 X1000 (0.0-0.2); BASO% 0.3 % (0.0-0.8); EOS# 0.15 X1000 (0.0-0.7); EOS% 3.9 % (0.0-10.0); HEMATOCRIT 28.8 % (37.0-47.0); HEMOGLOBIN 8.7 g/dL (12.0-16.0); IMM GRAN# 0.02 X1000 (0.0-0.04); IMM GRAN% 0.5 % (0.0-0.5); LYMPH# 0.52 X1000 (1.2-3.4); LYMPH% 13.6 % (20.5-51.1); MCH 26.4 PG (27-31); MCHC 30.2 g/dL (33-37); MCV 87.3 FL (81-99); MONO# 0.49 X1000 (0.11-0.59); MONO% 12.8 % (1.7-9.3); MPV 10.1 FL (7.4-10.4); NEUT# 2.63 X1000 (1.4-6.5); NEUT% 68.9 % (42.2-75.2); PLT 260 X1000 (130-400); RDW 16.4 % (11.5-14.5); WBC 3.82 X1000 (4.8-10.8)
[2019-09-04] MEDS ORDERED: ALDACTONE PO SCH (09:00)
[2019-09-04] MEDS ORDERED: PATIENT'S OWN MED PO SCH ×2 (09:00)
[2019-09-04] MEDS ORDERED: ZYLOPRIM PO SCH (09:00)
[2019-09-04] MEDS: REVATIO PO SCH (10:14)
[2019-09-04] MEDS: ICAR-C PO SCH (10:14)
[2019-09-04 12:04] VITALS: BP 119/52
--- NOTE | 2019-09-04 16:38 | DISCHARGE SUMMARY ---
ADMISSION DATE: 09/01/2019 DISCHARGE DATE: 09/04/2019 PRIMARY CARE PROVIDER: DONNA Westfall. HISTORY: This 79-year-old presented on 09/01/2019 with dark stools, fatigue, no energy for the past 3 days, progressively worsened. This is a 79-year-old female who presented to [facility] with complaints of a 3-day history of dark tarry stools and fatigue that has progressively worsened. She was in the hospital 08/06/2019 to 08/12/2019 with GI bleed, acute blood loss anemia. Had jejunal AV malformations which were clipped and injected on 08/08/2019. Discharged back to [facility] at that time. Noted to have a hemoglobin of 6.5 and hematocrit of 22. Her stool for occult blood was positive. PAST MEDICAL HISTORY: 1. Coronary artery disease. 2. Hypertension. 3. GI bleed. 4. Hypothyroidism. PAST SURGICAL HISTORY: Bilateral tubal ligation, appendectomy. ALLERGIES: Sulfa, amoxicillin, Augmentin, and metoprolol. ADMISSION DIAGNOSES: 1. Gastrointestinal bleed. 2. Symptomatic anemia. 3. Hypertension. 4. Coronary artery disease. HOSPITAL COURSE: She had a GI consult per Dr. Gustavo Haji. Multiple medical problems. 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 There was a clot associated at that time. It was injected with epinephrine and a clip was deployed. The area was tattooed. Did well postop and on discharge was stable. Continued on proton pump inhibitor once a day. Presented with similar symptoms of recurrent bleeding and the plan was to do maybe a repeat endoscopy. EGD was done. Findings were esophagus was normal, stomach was normal, jejunoileum had faint tattoo found approximately 100 cm from incision. The plan was to send her to [facility] for capsule endoscopy to evaluate small bowel. She had no further bleeding. Hematocrit and hemoglobin remained stable, so I think they could be done as an outpatient. She was eating and bowels moving well and wanted to go back to [facility]. Hemoglobin was 8.7, hematocrit 28, and stable. Electrolytes look good so. DISCHARGE MEDICATIONS: She is on Letairis 10 mg p.o. daily which is ambrisentan. She is on vitamin D3 and vitamin K once a day. She is on allopurinol 100 mg daily, Icar C 1 b.i.d., Protonix 40 mg a day, and Revatio which is sildenafil 20 mg t.i.d., this is for pulmonary hypertension. She is on Aldactone 25 mg daily. So, plan to discharge her back to [facility]. I will continue to follow her hematocrit hemoglobin. Plan is for further trouble we will need to re-evaluate small bowel probably within a capsule endoscopy. cc: Tristin Garcia MD
--- NOTE | 2019-09-04 19:19 | GASTROENTEROLOGY PROGRESS NOTE ---
DATE: 09/04/2019 SUBJECTIVE: Ms. Schulte 79 year old female sitting in bed having her breakfast. Denied any nausea, vomiting, diarrhea or abdominal pain. OBJECTIVE: Vital Signs: Temperature 98.5 degrees, pulse 67, respirations 16, blood pressure 120/55, oxygen saturation 100% on 2 L nasal cannula. Her weight is 113 pounds. BMI is 18.8 kg/m2. General: She is alert, oriented x3 and in no acute distress. HEENT: Pale conjunctivae. No icterus. PERRL. Neck: Supple. Abdomen: Soft, nontender, nondistended. Active bowel sounds heard in all 4 quadrants. Lungs: Clear to auscultation. Cardiovascular: Regular rate and rhythm. Extremities: No clubbing, cyanosis, or edema. Pedal pulses 2+ present bilaterally. Neurological: Alert and oriented x3. LABORATORY DATA: WBC is 3.82, RBC 3.30, hemoglobin 8.7, hematocrit 28.8, platelet count is 260,000. Sodium 138, potassium 4.2, chloride 103, carbon dioxide 30, anion gap is 5, BUN 16, creatinine 0.8, AST is 16, ALT is 6, alkaline phosphatase is 114. IMPRESSION: 1. Recurrent Gastrointestinal bleeding. 2. Anemia. 3. Chronic obstructive pulmonary disease. 4. Current coronary artery disease. 5. Congestive heart failure. 6. Hypertension. 7. Hyperlipidemia. 8. Hx of small bowel bleed PLAN: The plan is to refer the patient to [facility] for a capsule endoscopy and possible enteroscopy to evaluate the small bowel. We will continue her Protonix 40 mg daily for GI bleed. Continue Iron-C BID for anemia. Her H & H was 8.7 and 28.8. Will continue to monitor her hemoglobin and hematocrit and follow the plan of care per PCP. Patient can be discharged from GI standpoint. This plan was discussed with . Please call us for any further questions or concerns. Dictated by DONNA Cevallos for Jean Pennington MD cc: Jean Pennington MD I have seen and examined the patient myself and I agree with the above plan of care. I have discussed the above plan of care with the patient and family at bedside and all questions were answered. Please call us with any further questions or concerns MTDD
== END 2019-09-04 16:43 | DRG 378 ==
LOC: SUPCPDRO → ED 12:04 → SUATTDRO 15:25 → 4N 15:25
PROVIDERS: ATTEND Emergency Medicine